=== PATIENT | female | born 1960 | race Caucasian/White ===

== ENCOUNTER 2020-04-15 14:25 | Outpatient (CLI) | payer MEDICAID, SELFPAY ==
--- NOTE | 2020-04-15 14:15 | USCV_ITS ---
Camille Warren Age: 59 Gender: F : 1960 Exam Date: 04/15/2020 14:41 Ordering Phys: Yassine Erazo MD Technologist: aWyne Barakat Exam Location: [facility] [place] Indication: LT LEG PAIN HISTORY: Lower extremity pain. PROCEDURES: The venous duplex Doppler examination of both lower extremities was performed in the standard fashion. The following venous structures were evaluated: common femoral vein, profunda vein, proximal portion of the greater saphenous vein, superficial femoral vein, and the popliteal vein. In addition, the posterior tibial and peroneal trunk were evaluated. Bilaterally, the common femoral, superficial femoral, profunda femoral, popliteal, posterior tibial, greater saphenous veins, and the peroneal trunk were identified and interrogated in the standard fashion. These veins were found to be easily compressible with spontaneous blood flow. No evidence of insufficiency or thrombus noted. FINDINGS: Normal 2-D Doppler and augmentation and compressibility throughout the lower extremity venous structures. Additional imaging through the proximal calf veins also reveals no thrombus. Limited evaluation of the greater saphenous vein is patent with no thrombus.. CONCLUSIONS No evidence of right lower extremity DVT. No evidence of left lower extremity DVT. Omari Horn MD (Electronically Signed) Final Date: 15 April 2020 16:55 S
== END 2020-04-15 14:26 | disposition home or self-care (01) ==
LOC: RAD 14:28
PROVIDERS: Visit Provider Family Medicine Adult Medicine
DX: M79.605 Pain in left leg (principal)
CPT/HCPCS: 93970

== ENCOUNTER 2020-06-01 13:04 | Outpatient (CLI) | payer MEDICAID, SELFPAY ==
--- NOTE | 2020-06-01 | XR_ITS ---
WS: [id number] KNEE RIGHT TECHNIQUE: 3 views of the right knee CLINICAL INFORMATION: DONE IN ERROR COMPARISON: None. FINDINGS: Mild degenerative narrowing medial and lateral joint compartments worse involving the medial joint co mpartment. Hypertrophic changes along the joint line. Hypertrophic patella. No acute fractures. XR/XR knee RT 3V* [id number] IMPRESSION: Mild tricompartmental arthritis. No acute fractures.
--- NOTE | 2020-06-01 13:00 | XR_ITS ---
WS: [id number] KNEE LEFT TECHNIQUE: 3 views of the left knee CLINICAL INFORMATION: chronic left knee pain COMPARISON: None. FINDINGS: Moderate degenerative arthritis medial joint compartment. Hypertrophic changes along the joint line. Hypertrophic patella. Moderate degenerative narrowing at the patellofemoral articulation. Mild soft t issue edema. Small suprapatellar effusion. XR/XR knee LT 3V* [id number] IMPRESSION: Moderate degenerative arthritis medial joint compartment and moderate degenerat ash narrowing at the patellofemoral articulation.
--- NOTE | 2020-06-01 13:30 | XR_ITS ---
WS: [id number] HIPS BILATERAL TECHNIQUE: 5 views bilateral hips Including pelvis CLINICAL INFORMATION: Chronic left hip, sciatica and knee pain COMPARISON: None. FINDINGS: Mild degenerative arthritis bilateral hips with mild joint space narrowing. Left iliac stent. No acut e fractures. Normal visualized pubic rami. IMPRESSION: Mild degenerative arthritis both hips.
== END 2020-06-01 13:05 | disposition home or self-care (01) ==
LOC: RADWPI 13:05
PROVIDERS: PCP Family Medicine Adult Medicine; Visit Provider Family Medicine Adult Medicine
DX: M25.552 Pain in left hip (principal); M25.551 Pain in right hip; M25.562 Pain in left knee; M16.0 Bilateral primary osteoarthritis of hip; M17.12 Unilateral primary osteoarthritis, left knee
CPT/HCPCS: 73521; 73562

== ENCOUNTER → 2020-10-04 13:43 | Outpatient (BNVA) | payer MEDICAID, SELFPAY | PROVIDERS: PCP Family Medicine Adult Medicine; Visit Provider Family Medicine Adult Medicine | DX: M51.16 Intervertebral disc disorders with radiculopathy, lumbar region (principal); M79.7 Fibromyalgia; I10 Essential (primary) hypertension; E66.01 Morbid (severe) obesity due to excess calories; Z68.41 Body mass index [BMI] 40.0-44.9, adult | CPT/HCPCS: 80053; 80061; 83036; 84443; 85025; 85651; 86140; 86431 ==

== ENCOUNTER 2020-10-11 07:45 | Emergency (ER) | payer MEDICAID, SELFPAY ==
[2020-10-11 07:54] VITALS: BP 123/77; PULSE 86; RESP 18; TEMP 36.9; O2SAT 97; BMI 37.8
--- NOTE | 2020-10-11 08:14 | USCV_ITS ---
Camille Warren Age: 59 Gender: F : 1960 Exam Date: 10/11/2020 08:48 Ordering Phys: Toro Johansen DO Technologist: Exam Location: [facility] – [place] Indication: BILAT EDEMA HX OF LT LEG DVT HISTORY: Lower extremity swelling. PROCEDURES: The venous duplex Doppler examination of both lower extremities was performed in the standard fashion. The following venous structures were evaluated: common femoral vein, profunda vein, proximal portion of the greater saphenous vein, superficial femoral vein, and the popliteal vein. In addition, the posterior tibial and peroneal trunk were evaluated. Bilaterally, the common femoral, superficial femoral, profunda femoral, popliteal, posterior tibial, greater saphenous veins, and the peroneal trunk were identified and interrogated in the standard fashion. These veins were found to be easily compressible with spontaneous blood flow. No evidence of insufficiency or thrombus noted. FINDINGS: Normal 2-D Doppler and augmentation and compressibility throughout the lower extremity venous structures. Additional imaging through the proximal calf veins also reveals no thrombus. Limited evaluation of the greater saphenous vein is patent with no thrombus.. CONCLUSIONS No evidence of right lower extremity DVT. No evidence of left lower extremity DVT. Omari Horn MD (Electronically Signed) Final Date: 11 Oct 2020 15:47 S
--- NOTE | 2020-10-11 08:14 | XRR_ITS ---
PROCEDURE INFORMATION: Exam: XR Chest Exam date and time: 10/11/2020 8:33 AM Age: 59 years old Clinical indication: Dyspnea; Type not specified; Patient HX: Chest pain, n/v TECHNIQUE: Imaging protocol: XR of the chest. Views: 1 view. COMPARISON: No relevant prior studies available. FINDINGS: Lungs: Small benign calcified granulomas are present in the right lung. Otherwise the lungs are clear with no pneumonia. Pleural spaces: Unremarkable. No pleural effusion. No pneumothorax. Heart/Mediastinum: Unremarkable. No cardiomegaly. Bones/joints: Unremarkable. XR/XR chest 1V portable [id number] IMPRESSION: No acute cardiopulmonary abnormality.
--- NOTE | 2020-10-11 08:15 | ECG_ITS ---
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 Measurements Intervals [place] Rate: 85 P: 49 DC: 169 QRS: -85 QRSD: 98 T: 70 QT: 419 QTc: 499 Interpretive Statements SINUS RHYTHM WITH OCCASIONAL SUPRAVENTRICULAR PREMATURE COMPLEXES LEFT AXIS DEVIATION [QRS AXIS < -30] PATTERN CONSISTENT WITH PULMONARY DISEASE INCOMPLETE RIGHT BUNDLE BRANCH BLOCK [90+ ms QRS DURATION, TERMINAL R IN V1/V2, 40+ ms S IN I/aVL/V4/V5/V6] No previous ECG available for comparison Electronically Signed On 10-12-2020 8:01:18 CDT by Quinn Pascual M.D. [email or web address] Solutionsgulf coast veterans health care systemAcademic Management Serviceskettering health.[employer]/store/NU/[id number] f
[2020-10-11 08:32] LABS: Basophils # 0.1 10^3/uL (0.0-0.1); Basophils % 0.4 %; Eosinophils # 0.2 10^3/uL (0.0-0.8); Eosinophils % 1.6 %; Hematocrit 43.9 % (37.0-47.0); Hemoglobin 14.6 g/dL (11.5-15.3); Lymphocytes # 0.8 10^3/uL (0.8-4.8); Lymphocytes % 6.6 %; Mean Corpuscular HGB Conc 33.3 g/dL (30.0-36.0); Mean Corpuscular Volume 96.3 fL (81-99); Mean Platelet Volume 10.2 fL (7.4-10.4); Monocytes # 0.8 10^3/uL (0.2-0.9); Monocytes % 7.1 %; Neutrophils # 9.87 10^3/uL (1.8-7.7); Neutrophils % 83.9 %; Nucleated Red Blood Cells % 0 %; Platelet Count 307 10^3/cmm (130-400); Red Blood Count 4.56 10^6/uL (4.1-5.3); Red Cell Distribution Width 13.1 % (12.1-15.1); White Blood Count 11.8 10^3/uL (4.0-10.0)
[2020-10-11 08:43] LABS: INR 0.93 (0.8-1.2)
[2020-10-11 08:44] LABS: Partial Thromboplastin Time 19.6 SECONDS (23.9-36.7)
[2020-10-11 08:52] LABS: Alanine Aminotransferase 14 U/L (0-33); Albumin Level 4.4 g/dL (3.5-5.2); Alkaline Phosphatase 117 IU/L (35-105); Anion Gap 13.8 (5-19); Aspartate Amino Transferase 13 U/L (0-32); Blood Urea Nitrogen 12 mg/dL (8-23); Calcium 8.8 mg/dL (8.5-10.5); Carbon Dioxide 28 mmol/L (22-29); Chloride 99 mmol/L (98-107); Creatine Phosphokinase 78 U/L (26-192); Globulin 2.2 g/dL (1.3-4.6); Glomerular Filtration Rate 72.9 mL/min (90-130); Glucose 127 mg/dL (65-115); Osmolality Calculated 285 mOsm/kg (285-295); Potassium 3.8 mmol/L (3.5-5.1); Sodium 137 mmol/L (136-145); Total Bilirubin 0.7 mg/dL (0.15-1.2); Total Protein 6.6 g/dL (6.6-8.7); Troponin(5th) Baseline 10 ng/L (0-10)
[2020-10-11 08:53] LABS: Slide Review Slide Review Perform
--- NOTE | 2020-10-11 08:55 | PC.PHAR ---
pt states she takes care of her own medications-pt states she was on a blood thinner about 4 months ago for a short time-ext med history shows eliquis starter pack 5mg filled on 04/14/2020 30d/s
--- NOTE | 2020-10-11 09:32 | ED_ITS ---
HPI - Chest Pain General: Chief Complaint: Chest Pain Stated Complaint: CHEST PAIN, NAUSEA Time Seen by Provider: 10/11/20 07:45 History of Present Illness: HPI narrative: 59 yo female comes in complaining of chest pain and nausea. Patient has a history of previous DVT she tells me she had stents placed PT but I cannot find any records about that it when talking to her does not sound like she is ever had any intermittent claudication or any peripheral artery disease although she has a smoker. She has no known history of coronary artery disease she was on Eliquis for a time but is not currently taking it. She does state she has some more swelling in her legs recently. She not previously had any stress testing. She has been afebrile she has not had a productive cough. MD complaint: chest pain Onset (ago): day(s) Timing of current episode: episodic and still present Onset: during rest Pain location: substernal Pain radiation: none Severity: mild Relieving factors: nothing Exacerbating factors: nothing Associated symptoms: Reports dyspnea; Deny abdominal pain, diaphoresis, fever(s), leg edema, nausea, palpitations, sense of impending doom, syncope or vomiting Treatment prior to arrival: none Review of Systems Const: Denies: fever(s) or diaphoresis ENMT: Denies: throat pain, ear or mastoid pain, nasal discharge or nasal congestion Card: Denies: palpitations or syncope Resp: Reports: dyspnea GI: Denies: abdominal pain, nausea or vomiting : Denies: flank pain, difficulty voiding, dysuria, urinary frequency or urinary urgency Skin/Breast: Denies: rash or pruritus PFSH ED PFSH: Medical History Bilateral leg edema Brain tumor Chronic GERD Chronic osteoarthritis COPD (chronic obstructive pulmonary disease) Hx of deep venous thrombosis Hypertension Morbid obesity with BMI of 40.0-44.9, adult Osteoarthritis of left knee Sciatica of left side Social History Smoking and tobacco status: current every day smoker cigarettes Packs smoked per day: 0.5 Alcohol intake: current Alcohol intake frequency: holidays/special occasions only Marital status: Single Number of children: 3 Current occupational status: disabled Physical Exam Const: COMMON NORMALS: no acute distress GENERAL APPEARANCE: cooperative and comfortable ORIENTATION/CONSCIOUSNESS: Yes awake, Yes oriented to person, Yes oriented to place and Yes oriented to time HENMT: COMMON NORMALS: normocephalic, atraumatic and hearing grossly normal bilaterally HEAD & SCALP: normocephalic and atraumatic Neck/C-Spine: COMMON NORMALS: no JVD Resp: COMMON NORMALS: normal respiratory effort, No retractions, No use of accessory muscles and clear to auscultation bilaterally AUSCULTATION: clear to auscultation bilaterally Cardio: COMMON NORMALS: no JVD, regular rate, regular rhythm and No murmurs present (Cardio) RATE: regular rate RHYTHM: regular rhythm GI: COMMON NORMALS: Soft to palpation and No hepatosplenomegaly present AUSCULTATION: Yes normoactive bowel sounds PALPATION: Yes Soft to palpation, No Tenderness to palpation present (GI), No Guarding due to palpation present (GI) and Yes No hepatosplenomegaly present Extremity: COMMON NORMALS: normal to inspection, capillary refill normal, no clubbing, cyanosis or edema, no calf tenderness and no pedal edema Neuro: SENSORIUM/ORIENTATION: Yes oriented to person, Yes oriented to place and Yes oriented to time Skin: COMMON NORMALS: no rashes or lesions noted GENERAL SKIN EXAM: no rashes or lesions noted Course Vital Signs: Vital signs: Vital Signs Temperature 98.5 F 10/11/20 07:54 Pulse Rate 87 10/11/20 10:29 Respiratory Rate 18 10/11/20 10:29 Blood Pressure 111/71 10/11/20 10:29 Pulse Oximetry 98 10/11/20 10:29 MDM - Chest Pain MDM Narrative: Medical decision making narrative: Patient has a heart score of 1. Her troponin is negative. We are going to discharge her home we will add isosorbide mononitrate also have her continue taking aspirin set up for an outpatient sestamibi stress test as any worsening or changes return. Lab Data: Labs: Lab Results 10/11/20 10/11/20 10/11/20 Range/Units 08:22 08:22 08:22 WBC 11.8 H (4.0-10.0) 10^3/ uL RBC 4.56 (4.1-5.3) 10^6/u L Hgb 14.6 (11.5-15.3) g/dL Hct 43.9 (37.0-47.0) % MCV 96.3 (81-99) fL MCH 32.0 (28.0-34.0) pg MCHC 33.3 (30.0-36.0) g/dL RDW 13.1 (12.1-15.1) % Plt Count 307 (130-400) 10^3/c mm MPV 10.2 (7.4-10.4) fL Neut % (Auto) 83.9 % Lymph % (Auto) 6.6 % [place] % (Auto) 7.1 % Eos % (Auto) 1.6 % Baso % (Auto) 0.4 % Neut # (Auto) 9.87 H (1.8-7.7) 10^3/u L Lymph # (Auto) 0.8 (0.8-4.8) 10^3/u L [place] # (Auto) 0.8 (0.2-0.9) 10^3/u L Eos # (Auto) 0.2 (0.0-0.8) 10^3/u L Baso # (Auto) 0.1 (0.0-0.1) 10^3/u L Nucleated RBC % (a uto) 0 % Nucleated RBCs # 0.0 /100WBC PT 12.80 (12.1-14.9) SECO NDS INR 0.93 (0.8-1.2) APTT 19.6 L (23.9-36.7) SECO NDS Sodium 137 (136-145) mmol/L Potassium 3.8 (3.5-5.1) mmol/L Chloride 99 (98-107) mmol/L Carbon Dioxide 28 (22-29) mmol/L Anion Gap 13.8 (5-19) BUN 12 (8-23) mg/dL Creatinine 0.8 (0.5-0.9) mg/dL GFR Calculation 72.9 L (90-130) mL/min Glucose 127 H (65-115) mg/dL Calculated Osmolal ity 285 (285-295) mOsm/k g Calcium 8.8 (8.5-10.5) mg/dL Total Bilirubin 0.7 (0.15-1.2) mg/dL AST 13 (0-32) U/L ALT 14 (0-33) U/L Alkaline Phosphata se 117 H (35-105) IU/L Creatine Kinase 78 (26-192) U/L Troponin T Baselin e (0-10) ng/L Troponin T 120 Min [place] (0-10) ng/L Delta Troponin T (0-10) ABS# Total Protein 6.6 (6.6-8.7) g/dL Albumin 4.4 (3.5-5.2) g/dL Globulin 2.2 (1.3-4.6) g/dL Urine Color (Yellow) Urine Appearance (CLEAR) Urine pH (5-7) Ur Specific Gravit y (1.005-1.030) Urine Protein (Negative) Urine Glucose (UA) (Normal) Urine Ketones (Negative) Urine Blood (Negative) Urine Nitrate (Negative) Urine Bilirubin (Negative) Urine Urobilinogen (Negative) mg/dL Ur Leukocyte Lina ase (Negative) Urine RBC (0-2) /hpf Urine WBC (0-5) /hpf Ur Squamous Epith Cells (0-5) /hpf Amorphous Sediment Urine Bacteria (NONE) /hpf Urine Mucus /hpf 10/11/20 10/11/20 10/11/20 Range/Units 08:22 09:24 10:32 WBC (4.0-10.0) 10^3/ uL RBC (4.1-5.3) 10^6/u L Hgb (11.5-15.3) g/dL Hct (37.0-47.0) % MCV (81-99) fL MCH (28.0-34.0) pg MCHC (30.0-36.0) g/dL RDW (12.1-15.1) % Plt Count (130-400) 10^3/c mm MPV (7.4-10.4) fL Neut % (Auto) % Lymph % (Auto) % [place] % (Auto) % Eos % (Auto) % Baso % (Auto) % Neut # (Auto) (1.8-7.7) 10^3/u L Lymph # (Auto) (0.8-4.8) 10^3/u L [place] # (Auto) (0.2-0.9) 10^3/u L Eos # (Auto) (0.0-0.8) 10^3/u L Baso # (Auto) (0.0-0.1) 10^3/u L Nucleated RBC % (a uto) % Nucleated RBCs # /100WBC PT (12.1-14.9) SECO NDS INR (0.8-1.2) APTT (23.9-36.7) SECO NDS Sodium (136-145) mmol/L Potassium (3.5-5.1) mmol/L Chloride (98-107) mmol/L Carbon Dioxide (22-29) mmol/L Anion Gap (5-19) BUN (8-23) mg/dL Creatinine (0.5-0.9) mg/dL GFR Calculation (90-130) mL/min Glucose (65-115) mg/dL Calculated Osmolal ity (285-295) mOsm/k g Calcium (8.5-10.5) mg/dL Total Bilirubin (0.15-1.2) mg/dL AST (0-32) U/L ALT (0-33) U/L Alkaline Phosphata se (35-105) IU/L Creatine Kinase (26-192) U/L Troponin T Baselin e 10 (0-10) ng/L Troponin T 120 Min [place] 6.51 (0-10) ng/L Delta Troponin T -3.49 L (0-10) ABS# Total Protein (6.6-8.7) g/dL Albumin (3.5-5.2) g/dL Globulin (1.3-4.6) g/dL Urine Color Yellow (Yellow) Urine Appearance Clear (CLEAR) Urine pH 5 (5-7) Ur Specific Gravit y 1.030 (1.005-1.030) Urine Protein Trace (Negative) Urine Glucose (UA) Norm (Normal) Urine Ketones Negative (Negative) Urine Blood 2+ H (Negative) Urine Nitrate Negative (Negative) Urine Bilirubin 1+ H (Negative) Urine Urobilinogen 1 H (Negative) mg/dL Ur Leukocyte Lina ase Trace H (Negative) Urine RBC 10-15 H (0-2) /hpf Urine WBC 5-10 H (0-5) /hpf Ur Squamous Epith Cells 0-4 H (0-5) /hpf Amorphous Sediment Not Reportable Urine Bacteria 1+ H (NONE) /hpf Urine Mucus 2+ /hpf Discharge Plan Discharge Patient Disposition: Home Clinical Impression: Atypical chest pain, COPD (chronic obstructive pulmonary disease), Hx of deep venous thrombosis Condition: Stable Prescriptions: New aspirin 81 mg tablet,delayed release (DR/EC) 81 mg PO DAILY Qty: 30 RF: 0 isosorbide mononitrate 30 mg tablet extended release 24 hr 30 mg PO DAILY Qty: 30 RF: 0 No Action albuterol sulfate 90 mcg/actuation HFA aerosol inhaler 2 puff inhalation Q6H PRN (Reason: shortness of breath or wheezing) Qty: 8.5 RF: 3 furosemide [Lasix] 40 mg tablet 40 mg PO BID Qty: 60 RF: 5 meloxicam 7.5 mg tablet 7.5 mg PO BIDWMEAL Qty: 60 RF: 3 Tylenol Extra Strength 500 mg Tablet 1,000 mg PO PRN RF: 0 omeprazole 40 mg capsule,delayed release(DR/EC) 40 mg PO QAM RF: 0 aspirin [Adult Aspirin Regimen] 81 mg tablet,delayed release (DR/EC) 81 mg PO QAM RF: 0 potassium chloride 20 mEq tablet extended release 20 meq PO QAM RF: 0 Discharge Orders: Discharge ED (Routine); Ordered 10/11/20 Ordered By: Toro Johansen Referrals: Yassine Erazo MD [Primary Care Provider] - Discharge Diet: Usual diet Discharge Activity: Limit activity as instructed Patient Instructions: Opioid Safety Activity Restrictions/Additional Instructions: Management will call to make arrangements for a stress test. If you have further problems. Coding Level of Care Code ED School Bus Driver/Custodian for Markg Fwd Exam Comprehensive
[2020-10-11 09:42] LABS: Add Urine Microscopic? YES; Bilirubin Urine 1+ (Negative); Blood Urine 2+ (Negative); Glucose Urine UA Norm (Normal); Ketones Urine Negative (Negative); Leukocyte Esterase Urine Trace (Negative); Nitrate Urine Negative (Negative); Protein Urine Trace (Negative); Urine Appearance Clear (CLEAR); Urine Color Yellow (Yellow); Urobilinogen Urine 1 mg/dL (Negative); pH Urine 5 (5-7)
[2020-10-11 09:50] LABS: Add Urine Culture? No; Bacteria Urine 1+ /hpf; Mucus Urine 2+ /hpf; Squamous Epithelial Cell Urine 0-4 /hpf (0-5)
--- NOTE | 2020-10-11 10:05 | CT_ITS ---
WS: [id number] CTA OF THE CHEST WITH PULMONARY EMBOLISM PROTOCOL TECHNIQUE: High-resolution contrast enhanced CTA of the chest with coronal and sagittal reformatted i mages with pulmonary embolism protocol. MIP images are also reviewed. CLINICAL INFORMATION: dyspnea COMPARISON: None. DLP: 582.[address] scans at [facility] use at least one of these dose optimization techniques: automat ed exposure control; mA and/or kV adjustment per patient size (includes targeted exams where dose is matched to clinical indication); or iterative reconstruction. FINDINGS: Proximal main pulmonary arteries are normal. Normal segmental and subsegmental pulmonary arteries. No evidence of pulmonary embolus. Normal caliber thoracic aorta. No mediastinal or hilar lymphadenopathy. No axillary lymphadenopathy. Both lungs are well aerated. No acute pulmonary infiltrates. Slight atelectasis in lung bases. Adrena l glands are normal. Normal GE junction. CT/CT angio chest PE protcl [id number] IMPRESSION: 1. Proximal main pulmonary arteries are normal. No evidence of pulmonary embol us. 2. Mild chronic emphysematous changes. No acute pulmonary infiltrates. 3. Slight subsegmental atelectasis the lung bases. 4. No mediastinal or hilar lymphadenopathy.
--- NOTE | 2020-10-11 10:15 | ECG_ITS ---
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 Measurements Intervals [place] Rate: 82 P: 59 ID: [id number] QRS: -83 QRSD: 94 T: 88 QT: 421 QTc: 495 Interpretive Statements SINUS RHYTHM INCOMPLETE RIGHT BUNDLE BRANCH BLOCK [90+ ms QRS DURATION, TERMINAL R IN V1/V2, 40+ ms S IN I/aVL/V4/V5/V6] LEFT ANTERIOR FASCICULAR BLOCK [QRS AXIS <= -45, QR IN I, RS IN II] Compared to ECG 10/11/2020 08:10:25 Left anterior fascicular block now present Left-axis deviation no longer present Electronically Signed On 10-12-2020 10:03:16 CDT by Quinn Pascual M.D. [id number] f
[2020-10-11] MEDS: iohexol 350 mg/mL 100 mL Btl IV (10:21)
[2020-10-11 10:29] VITALS: BP 111/71; PULSE 87; RESP 18; O2SAT 98
[2020-10-11 10:54] LABS: Troponin 5 2HR 6.51 ng/L (0-10)
[2020-10-11 10:55] LABS: Troponin 5 2HR Delta -3.49 ABS# (0-10)
[2020-10-11 11:58] VITALS: BP 144/81; PULSE 84; RESP 18; O2SAT 96
--- NOTE | 2020-10-11 15:46 | DCPLANNER ---
process improvement manager had message to schedule an outpatient stress test for patient. process improvement manager faxed signed order to centralized scheduling. process improvement manager will call for appointment information.
--- NOTE | 2020-10-19 08:54 | DCPLANNER ---
Patient has an outpatient stress test scheduled for Sunday, October 25, 2020 at 1:00. Centralized scheduling will call patient with appointment information.
--- NOTE | 2020-12-28 07:43 | DCPLANNER ---
Patient had an out patient stress test scheduled for 10.25.20 - it was rescheduled for a later date.
== END 2020-10-11 12:00 | disposition home or self-care (01) ==
PROVIDERS: Emergency Provider Family Medicine; PCP Family Medicine Adult Medicine
DX: R07.89 Other chest pain (principal); J44.9 Chronic obstructive pulmonary disease, unspecified; Z86.718 Personal history of other venous thrombosis and embolism; Z79.82 Long term (current) use of aspirin; I10 Essential (primary) hypertension; F17.210 Nicotine dependence, cigarettes, uncomplicated
CPT/HCPCS: 36415; 71045; 71275; 80053; 81001; 82550; 84484; 85025; 85610; 85730; 93005; 93970; 99284; Q9967

== ENCOUNTER 2021-06-01 15:05 | Inpatient (IN) | payer MEDICAID, SELFPAY ==
[2021-06-01] VITALS (20 sets, daily range): BP systolic 74–121; BP diastolic 53–102; PULSE 78–150; RESP 12–28; TEMP 36.7–37.5; O2SAT 92–100
--- NOTE | 2021-06-01 15:50 | XRR_ITS ---
PROCEDURE INFORMATION: Exam: XR Chest Exam date and time: 06/01/2021 3:50 PM Age: 60 years old Clinical indication: Cough and dyspnea; Additional info: Dyspnea/cough TECHNIQUE: Imaging protocol: XR of the chest. Views: 1 view. COMPARISON: CR XR chest 1V portable [id number] 10/11/2020 8:23 AM FINDINGS: Lungs: Calcified granulomas again noted in the right lung. No consolidation. Pleural spaces: Unremarkable. No pleural effusion. No pneumothorax. Heart/Mediastinum: Unremarkable. No cardiomegaly. Bones/joints: Unremarkable. XR/XR chest 1V portable [id number] IMPRESSION: No acute findings.
--- NOTE | 2021-06-01 16:05 | ECG_ITS ---
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 Measurements Intervals [place] Rate: 152 P: FL: QRS: -59 QRSD: 102 T: 69 QT: 293 QTc: 466 Interpretive Statements ATRIAL FLUTTER/TACHYCARDIA WITH RAPID VENTRICULAR RESPONSE LEFT AXIS DEVIATION [QRS AXIS < -30] INCOMPLETE RIGHT BUNDLE BRANCH BLOCK [90+ ms QRS DURATION, TERMINAL R IN V1/V2, 40+ ms S IN I/aVL/V4/V5/V6] MODERATE ST DEPRESSION [0.05+ mV ST DEPRESSION] CRITICAL TEST RESULT Compared to ECG 10/11/2020 11:04:48 Left-axis deviation now present ST (T wave) deviation now present Sinus rhythm no longer present Left anterior fascicular block no longer present Electronically Signed On 06-01-2021 20:36:39 HEAD WAITER/WAITRESS by Quinn Pascual M.D. [id number]
--- NOTE | 2021-06-01 16:06 | ED_ITS ---
Documented by User: Toro Johansen DO 06/08/21 10:20 HPI - COVID General: Chief Complaint: COVID symptoms Stated Complaint: Covid symptoms Time Seen by Provider: 06/01/21 15:49 Triage information: Has fever, cough or shortness of breath . No known COVID + exposure last 14 days History of Present Illness: HPI Narrative: 58-year-old female presents clinic cough shortness of breath nausea vomiting for last 4 days. She has not had any fever she has had generalized myalgias flulike symptoms. Cough is been nonproductive. Not previously vaccinated for Covid. She did had some initial diarrhea but that is resolved. MD complaint: has COVID symptoms Prior covid testing: no COVID 19 common symptoms: positive fever(s), chills, cough, non-productive cough, dyspnea, fatigue, body aches, loss of sense of smell and/or taste, nasal congestion, nausea and diarrhea; negative vomiting or chest tightness COVID 19 other sytmptoms: positive requiring oxygen; negative chest pain Onset (ago): week(s) Severity: mild Pertinent comorbid conditions: obesity COVID Results: No Data to Display Review of Systems Const: Reports: fever(s), chills, body aches and fatigue ENMT: Reports: nasal congestion Card: Denies: chest pain, edema, dyspnea on exertion or orthopnea Resp: Reports: dyspnea and non-productive cough GI: Reports: nausea and diarrhea; Denies: vomiting : Denies: flank pain, difficulty voiding, dysuria, urinary frequency or urinary urgency Skin/Breast: Denies: rash or pruritus PFSH ED PFSH: Medical History Anxiety and depression Bilateral leg edema Brain tumor Chronic GERD Chronic osteoarthritis COPD (chronic obstructive pulmonary disease) Hx of deep venous thrombosis Hypertension Morbid obesity with BMI of 40.0-44.9, adult Osteoarthritis of left knee Sciatica of left side Social History Alcohol intake: current Alcohol intake frequency: holidays/special occasions only Marital status: Single Number of children: 3 Current occupational status: disabled Physical Exam Const: GENERAL APPEARANCE: cooperative and comfortable ORIENTATION/CONSCIOUSNESS: Yes awake, Yes oriented to person, Yes oriented to place and Yes oriented to time HENMT: COMMON NORMALS: normocephalic, atraumatic, hearing grossly normal bilaterally and external ears normal HEAD & SCALP: normocephalic and atraumatic EXTERNAL EAR: Yes external ears normal Neck/C-Spine: COMMON NORMALS: no JVD Resp: AUSCULTATION: wheezes Cardio: COMMON NORMALS: no JVD, regular rate, regular rhythm and No murmurs present (Cardio) RATE: regular rate RHYTHM: regular rhythm GI: COMMON NORMALS: Soft to palpation and No hepatosplenomegaly present AUSCULTATION: Yes normoactive bowel sounds PALPATION: Yes Soft to palpation, No Tenderness to palpation present (GI), No Guarding due to palpation present (GI) and Yes No hepatosplenomegaly present Extremity: COMMON NORMALS: normal to inspection, capillary refill normal, no clubbing, cyanosis or edema, no calf tenderness and no pedal edema Neuro: SENSORIUM/ORIENTATION: Yes oriented to person, Yes oriented to place and Yes oriented to time Skin: COMMON NORMALS: no rashes or lesions noted GENERAL SKIN EXAM: no rash es or lesions noted Course Vital Signs: Vital signs: Vital Signs Temperature 98.6 F 06/04/21 12:00 Pulse Rate 72 06/04/21 12:00 Respiratory Rate 17 06/04/21 12:00 Blood Pressure 142/70 06/04/21 12:00 Pulse Oximetry 94 06/04/21 12:00 MDM - COVID MDM Narrative: Medical decision making narrative: Patient in with Emigdio quigley with [facility] also suspect she has Covid. Covid test is pending. Initially patient given IV Cardizem maxed out that dosage on the drip and she did not have any significant improvement. Subsequently switched her to esmolol and again she had no significant improvement. She continues to be in the 140s and sometimes above. Called and discussed with cardiology they do not recommend cardioversion at this time her blood pressure remains stable. Concerned that patient may require intubation if we sedate for cardioversion. Dr. Jaquez recommends discontinuing the esmolol drip at this point and stsrting amiodorone. Vital signs in the emergency room do not reflect it however the patient was hypoxic initially on presentation was below 90 and was on nasal cannula at 2 L. Due to arrhythmia and difficulty with rate control and her COVID status as well as other risk factors for worsening COVID she will require hospitalization. Lab Data: Labs: Lab Results 06/01/21 06/01/21 06/01/21 16:10 16:10 16:10 WBC 4.7 10^3/uL 10^3/ uL (4.0-10.0) RBC 4.52 10^6/uL 10^6 /uL (4.1-5.3) Hgb 14.4 g/dL g/dL (11.5-15.3) Hct 41.5 % % (37.0-47.0) MCV 91.8 fl fl (81-99) MCH 31.9 pg pg (28.0-34.0) MCHC 34.7 g/dL g/dL (30.0-36.0) RDW 13.5 % % (12.1-15.1) Plt Count 256 10^3/cmm 10^3 /cmm (130-400) MPV 10.4 fL fL (7.4-10.4) Neut % (Auto) 71.1 % % Lymph % (Auto) 17.2 % % [place] % (Auto) 10.9 % % Eos % (Auto) 0.2 % % Baso % (Auto) 0.2 % % Neut # (Auto) 3.34 10^3/uL 10^3 /uL (1.8-7.7) Lymph # (Auto) 0.8 10^3/uL 10^3/ uL (0.8-4.8) [place] # (Auto) 0.5 10^3/uL 10^3/ uL (0.2-0.9) Eos # (Auto) 0.0 10^3/uL 10^3/ uL (0.0-0.8) Baso # (Auto) 0.0 10^3/uL 10^3/ uL (0.0-0.1) Nucleated RBC % (a uto) 0 % % Nucleated RBCs # 0.0 /100WBC /100W BC D-Dimer Specimen Type Sample Site ABG pH ABG pCO2 ABG pO2 ABG HCO3 ABG O2 Saturation ABG Base Excess Anand Test A-a O2 Gradient Hematocrit Hgb O2 Saturation Carboxyhemoglobin Methemoglobin Total Hemoglobin Ionized Calcium O2 Delivery Device O2 Liters/Min FiO2 Car Head Liner Installer ID Sodium 131 mmol/L L mmol /L (136-145) Potassium 4.2 mmol/L mmol/L (3.5-5.1) Chloride 94 mmol/L L mmol/ L (98-107) Carbon Dioxide 22 mmol/L mmol/L (22-29) Anion Gap 19.2 H (5-19) BUN 9 mg/dL mg/dL (8-23) Creatinine 0.7 mg/dL mg/dL (0.5-0.9) GFR Calculation 84.8 mL/min L mL/ min (90-130) Glucose 101 mg/dL mg/dL (65-115) Calculated Osmolal ity 271 mOsm/kg L mOs m/kg (285-295) Calcium 8.2 mg/dL L mg/dL (8.5-10.5) Total Bilirubin 0.4 mg/dL mg/dL (0.15-1.2) AST 16 U/L U/L (0-32) ALT 12 U/L U/L (0-33) Alkaline Phosphata se 103 IU/L IU/L (35-105) Troponin T Baselin e 10 ng/L ng/L (0-10) Troponin T 120 Min [place] Troponin T C-Reactive Protein 105.9 mg/L H mg/L (0.0-4.9) Total Protein 6.1 g/dL L g/dL (6.6-8.7) Albumin 3.7 g/dL g/dL (3.5-5.2) Globulin 2.4 g/dL g/dL (1.3-4.6) Coronavirus 229E ( PCR) SARS-CoV-2 (PCR) 06/01/21 06/01/21 06/01/21 16:15 16:29 18:15 WBC RBC Hgb Hct MCV MCH MCHC RDW Plt Count MPV Neut % (Auto) Lymph % (Auto) [place] % (Auto) Eos % (Auto) Baso % (Auto) Neut # (Auto) Lymph # (Auto) [place] # (Auto) Eos # (Auto) Baso # (Auto) Nucleated RBC % (a uto) Nucleated RBCs # D-Dimer 1.38 ug/mIFEU H u g/mIFEU (0-0.59) Specimen Type Arterial Sample Site Radial, right ABG pH 7.48 H (7.35-7.45) ABG pCO2 31.7 mmHg L mmHg (35-45) ABG pO2 267.0 mmHg H mmHg (80.0-100.0) ABG HCO3 23.8 mmol/L mmol/ L (22-26) ABG O2 Saturation 99.9 ABG Base Excess 1.1 mmol/L mmol/L (-2.0-2.0) Anand Test Pos A-a O2 Gradient 51.4 mmHg H mmHg (5-10) Hematocrit 43.5 % % (37-47) Hgb O2 Saturation 98.9 % % (95-100) Carboxyhemoglobin 0.1 %THgb L %THgb (0.4-20.1) Methemoglobin 0.9 % % (0.4-1.5) Total Hemoglobin 14.2 g/dL g/dL (12-16) Ionized Calcium 1.1 mmol/L mmol/L (1.1-1.4) O2 Delivery Device Nrb O2 Liters/Min 15.0 % % FiO2 100.0 % % Car Head Liner Installer ID Rieri Sodium 132.0 mmol/L mmol /L (131-143) Potassium 4.1 mmol/L mmol/L (3.5-5.0) Chloride Carbon Dioxide Anion Gap BUN Creatinine GFR Calculation Glucose 105.0 mg/dL mg/dL (70-115) Calculated Osmolal ity Calcium Total Bilirubin AST ALT Alkaline Phosphata se Troponin T Baselin e Troponin T 120 Min [place] Troponin T C-Reactive Protein Total Protein Albumin Globulin Coronavirus 229E ( PCR) Not detected (NOT DETECT) SARS-CoV-2 (PCR) Detected A (NOT DETECT) 06/01/21 18:24 WBC RBC Hgb Hct MCV MCH MCHC RDW Plt Count MPV Neut % (Auto) Lymph % (Auto) [place] % (Auto) Eos % (Auto) Baso % (Auto) Neut # (Auto) Lymph # (Auto) [place] # (Auto) Eos # (Auto) Baso # (Auto) Nucleated RBC % (a uto) Nucleated RBCs # D-Dimer Specimen Type Sample Site ABG pH ABG pCO2 ABG pO2 ABG HCO3 ABG O2 Saturation ABG Base Excess Anand Test A-a O2 Gradient Hematocrit Hgb O2 Saturation Carboxyhemoglobin Methemoglobin Total Hemoglobin Ionized Calcium O2 Delivery Device O2 Liters/Min FiO2 Car Head Liner Installer ID Sodium Potassium Chloride Carbon Dioxide Anion Gap BUN Creatinine GFR Calculation Glucose Calculated Osmolal ity Calcium Total Bilirubin AST ALT Alkaline Phosphata se Troponin T Baselin e Troponin T 120 Min [place] 9.99 ng/L ng/L (0-10) [place] Troponin T -0.01 ABS# L ABS# (0-10) C-Reactive Protein Total Protein Albumin Globulin Coronavirus 229E ( PCR) SARS-CoV-2 (PCR) COVID Results: No Data to Display Critical Care Time Critical Care Time: Critical Care Time: Yes Total Critical Care Time: 40 Attestation: The high probability of a clinically significant, sudden or life threatening deterioration of the patient's [cardiovascular, respiratory] system(s) required my full and direct attention, intervention and personal management. The critical care time is as shown. This time is in addition to time spent performing any reported procedures but includes the following: [x] Data and vital sign review and interpretation [x] Patient assessment, examination and intervention [x] Documentation [x] Medication orders and management Discharge Plan Discharge Patient Disposition: Admitted As Inpatient Admit Provider: Cesar Pond Condition: Stable Discharge Diet: Regular Discharge Activity: Increase activity as tolerated Coding Level of Care Code ED Specification Writer for Chg Fwd Exam Comprehensive Documented by User: Scottie Mercer MD 06/01/21 20:08 HPI - COVID General: Chief Complaint: COVID symptoms Stated Complaint: Covid symptoms Time Seen by Provider: 06/01/21 15:49 COVID Results: No Data to Display PFSH ED PFSH: Medical History Anxiety and depression Bilateral leg edema Brain tumor Chronic GERD Chronic osteoarthritis COPD (chronic obstructive pulmonary disease) Hx of deep venous thrombosis Hypertension Morbid obesity with BMI of 40.0-44.9, adult Osteoarthritis of left knee Sciatica of left side Social History Alcohol intake: current Alcohol intake frequency: holidays/special occasions only Marital status: Single Number of children: 3 Current occupational status: disabled Procedures Procedural Sedation Indication: other (cardioversion) ASA Class: III Time of Last PO Intake: 15:07 Preparation: environmental monitoring specialist applied, pulse oximeter, supplemental O2 applied, suction/airway equipment at bedside and IV secured Ketamine dose (mg): 240 Patient Tolerated Procedure: well Complications: none Course Vital Signs: Vital signs: Vital Signs Temperature 98.6 F 06/04/21 12:00 Pulse Rate 72 06/04/21 12:00 Respiratory Rate 17 06/04/21 12:00 Blood Pressure 142/70 06/04/21 12:00 Pulse Oximetry 94 06/04/21 12:00 MDM - COVID MDM Narrative: Medical decision making narrative: Admitting physician came down seen patient she is been having hypotension with her atrial flutter core machine tender is seen patient as well they decided to cardiovert her. I help with procedural sedation for the cardioversion. I used ketamine as I felt that it would cause the least respiratory depression and be the best agent to try to avoid intubation with her Covid. Patient was induced with 240 mg IV patient was cardioverted it was successful patient blood pressure is improved now to 122/84 she is not hypoxic responsive we will still admit to the ICU at this time. Lab Data: Labs: Lab Results 06/01/21 06/01/21 06/01/21 16:10 16:10 16:10 WBC 4.7 10^3/uL 10^3/ uL (4.0-10.0) RBC 4.52 10^6/uL 10^6 /uL (4.1-5.3) Hgb 14.4 g/dL g/dL (11.5-15.3) Hct 41.5 % % (37.0-47.0) MCV 91.8 fl fl (81-99) MCH 31.9 pg pg (28.0-34.0) MCHC 34.7 g/dL g/dL (30.0-36.0) RDW 13.5 % % (12.1-15.1) Plt Count 256 10^3/cmm 10^3 /cmm (130-400) MPV 10.4 fL fL (7.4-10.4) Neut % (Auto) 71.1 % % Lymph % (Auto) 17.2 % % [place] % (Auto) 10.9 % % Eos % (Auto) 0.2 % % Baso % (Auto) 0.2 % % Neut # (Auto) 3.34 10^3/uL 10^3 /uL (1.8-7.7) Lymph # (Auto) 0.8 10^3/uL 10^3/ uL (0.8-4.8) [place] # (Auto) 0.5 10^3/uL 10^3/ uL (0.2-0.9) Eos # (Auto) 0.0 10^3/uL 10^3/ uL (0.0-0.8) Baso # (Auto) 0.0 10^3/uL 10^3/ uL (0.0-0.1) Nucleated RBC % (a uto) 0 % % Nucleated RBCs # 0.0 /100WBC /100W BC D-Dimer Specimen Type Sample Site ABG pH ABG pCO2 ABG pO2 ABG HCO3 ABG O2 Saturation ABG Base Excess Anand Test A-a O2 Gradient Hematocrit Hgb O2 Saturation Carboxyhemoglobin Methemoglobin Total Hemoglobin Ionized Calcium O2 Delivery Device O2 Liters/Min FiO2 Car Head Liner Installer ID Sodium 131 mmol/L L mmol /L (136-145) Potassium 4.2 mmol/L mmol/L (3.5-5.1) Chloride 94 mmol/L L mmol/ L (98-107) Carbon Dioxide 22 mmol/L mmol/L (22-29) Anion Gap 19.2 H (5-19) BUN 9 mg/dL mg/dL (8-23) Creatinine 0.7 mg/dL mg/dL (0.5-0.9) GFR Calculation 84.8 mL/min L mL/ min (90-130) Glucose 101 mg/dL mg/dL (65-115) Calculated Osmolal ity 271 mOsm/kg L mOs m/kg (285-295) Calcium 8.2 mg/dL L mg/dL (8.5-10.5) Total Bilirubin 0.4 mg/dL mg/dL (0.15-1.2) AST 16 U/L U/L (0-32) ALT 12 U/L U/L (0-33) Alkaline Phosphata se 103 IU/L IU/L (35-105) Troponin T Baselin e 10 ng/L ng/L (0-10) Troponin T 120 Min [place] Troponin T C-Reactive Protein 105.9 mg/L H mg/L (0.0-4.9) Total Protein 6.1 g/dL L g/dL (6.6-8.7) Albumin 3.7 g/dL g/dL (3.5-5.2) Globulin 2.4 g/dL g/dL (1.3-4.6) Coronavirus 229E ( PCR) SARS-CoV-2 (PCR) 06/01/21 06/01/21 06/01/21 16:15 16:29 18:15 WBC RBC Hgb Hct MCV MCH MCHC RDW Plt Count MPV Neut % (Auto) Lymph % (Auto) [place] % (Auto) Eos % (Auto) Baso % (Auto) Neut # (Auto) Lymph # (Auto) [place] # (Auto) Eos # (Auto) Baso # (Auto) Nucleated RBC % (a uto) Nucleated RBCs # D-Dimer 1.38 ug/mIFEU H u g/mIFEU (0-0.59) Specimen Type Arterial Sample Site Radial, right ABG pH 7.48 H (7.35-7.45) ABG pCO2 31.7 mmHg L mmHg (35-45) ABG pO2 267.0 mmHg H mmHg (80.0-100.0) ABG HCO3 23.8 mmol/L mmol/ L (22-26) ABG O2 Saturation 99.9 ABG Base Excess 1.1 mmol/L mmol/L (-2.0-2.0) Anand Test Pos A-a O2 Gradient 51.4 mmHg H mmHg (5-10) Hematocrit 43.5 % % (37-47) Hgb O2 Saturation 98.9 % % (95-100) Carboxyhemoglobin 0.1 %THgb L %THgb (0.4-20.1) Methemoglobin 0.9 % % (0.4-1.5) Total Hemoglobin 14.2 g/dL g/dL (12-16) Ionized Calcium 1.1 mmol/L mmol/L (1.1-1.4) O2 Delivery Device Nrb O2 Liters/Min 15.0 % % FiO2 100.0 % % Car Head Liner Installer ID Rieri Sodium 132.0 mmol/L mmol /L (131-143) Potassium 4.1 mmol/L mmol/L (3.5-5.0) Chloride Carbon Dioxide Anion Gap BUN Creatinine GFR Calculation Glucose 105.0 mg/dL mg/dL (70-115) Calculated Osmolal ity Calcium Total Bilirubin AST ALT Alkaline Phosphata se Troponin T Baselin e Troponin T 120 Min [place] Troponin T C-Reactive Protein Total Protein Albumin Globulin Coronavirus 229E ( PCR) Not detected (NOT DETECT) SARS-CoV-2 (PCR) Detected A (NOT DETECT) 06/01/21 18:24 WBC RBC Hgb Hct MCV MCH MCHC RDW Plt Count MPV Neut % (Auto) Lymph % (Auto) [place] % (Auto) Eos % (Auto) Baso % (Auto) Neut # (Auto) Lymph # (Auto) [place] # (Auto) Eos # (Auto) Baso # (Auto) Nucleated RBC % (a uto) Nucleated RBCs # D-Dimer Specimen Type Sample Site ABG pH ABG pCO2 ABG pO2 ABG HCO3 ABG O2 Saturation ABG Base Excess Anand Test A-a O2 Gradient Hematocrit Hgb O2 Saturation Carboxyhemoglobin Methemoglobin Total Hemoglobin Ionized Calcium O2 Delivery Device O2 Liters/Min FiO2 Car Head Liner Installer ID Sodium Potassium Chloride Carbon Dioxide Anion Gap BUN Creatinine GFR Calculation Glucose Calculated Osmolal ity Calcium Total Bilirubin AST ALT Alkaline Phosphata se Troponin T Baselin e Troponin T 120 Min [place] 9.99 ng/L ng/L (0-10) Delta Troponin T -0.01 ABS# L ABS# (0-10) C-Reactive Protein Total Protein Albumin Globulin Coronavirus 229E ( PCR) SARS-CoV-2 (PCR) COVID Results: No Data to Display Critical Care Time Critical Care Time: Critical Care Time: Yes Total Critical Care Time: 35 Attestation: The high probability of a clinically significant, sudden or life threatening deterioration of the patient's [] system(s) required my full and direct attention, intervention and personal management. The critical care time is as shown. This time is in addition to time spent performing any reported procedures but includes the following: [x] Data and vital sign review and interpretation [x] Patient assessment, examination and intervention [x] Documentation [x] Medication orders and management Discharge Plan Discharge Patient Disposition: Admitted As Inpatient Admit Provider: Cesar Pond Condition: Stable Discharge Diet: Regular Discharge Activity: Increase activity as tolerated Coding Level of Care Code ED Specification Writer for Chg Fwd Exam Comprehensive
[2021-06-01] MEDS: sodium chloride 0.9% 500 ML IV (16:13)
[2021-06-01 16:26] LABS: Basophils % 0.2 %; Eosinophils % 0.2 %; Hematocrit 41.5 % (37.0-47.0); Hemoglobin 14.4 g/dL (11.5-15.3); Lymphocytes # 0.8 10^3/uL (0.8-4.8); Lymphocytes % 17.2 %; Mean Corpuscular HGB Conc 34.7 g/dL (30.0-36.0); Mean Corpuscular Hemoglobin 31.9 pg (28.0-34.0); Mean Corpuscular Volume 91.8 fl (81-99); Mean Platelet Volume 10.4 fL (7.4-10.4); Monocytes # 0.5 10^3/uL (0.2-0.9); Monocytes % 10.9 %; Neutrophils # 3.34 10^3/uL (1.8-7.7); Neutrophils % 71.1 %; Nucleated Red Blood Cells % 0 %; Platelet Count 256 10^3/cmm (130-400); Red Blood Count 4.52 10^6/uL (4.1-5.3); Red Cell Distribution Width 13.5 % (12.1-15.1); White Blood Count 4.7 10^3/uL (4.0-10.0)
--- NOTE | 2021-06-01 16:43 | CTR_ITS ---
PROCEDURE INFORMATION: Exam: CTA Chest With Contrast Exam date and time: 06/01/2021 4:43 PM Age: 60 years old Clinical indication: Shortness of breath; Prior surgery; Patient HX: Hypoxia, tachycardia; Additional info: Tachycardia/hypoxia TECHNIQUE: Imaging protocol: Computed tomographic angiography of the chest with contrast. 3D rendering (Not supervised by radiologist): MIP and/or 3D reconstructed images were created by the technologist. Radiation optimization: All CT scans at this facility use at least one of these dose optimization techniques: automated exposure control; mA and/or kV adjustment per patient size (includes targeted exams where dose is matched to clinical indication); or iterative reconstruction. Contrast material: VISIPAQUE 320; Contrast volume: 78 ml; Contrast route: INTRAVENOUS (IV); COMPARISON: CT angio chest PE protcl [id number] 10/11/2020 10:30 AM RADIATION DOSE METRICS: Total DLP (mGy-cm): 578.25 FINDINGS: Pulmonary arteries: Normal. No pulmonary emboli. Aorta: Unremarkable. No aortic aneurysm. No aortic dissection. Lungs: Patchy peripheral ground-glass opacities scattered throughout both lungs. Multiple calcified granulomas in both lungs. 3 mm right upper lobe noncalcified nodule, series 2, image 222. Pleural spaces: Unremarkable. No pneumothorax. No pleural effusion. Heart: Trace pericardial effusion. The heart size is normal. Lymph nodes: Prominent mediastinal and hilar lymph nodes are most likely reactive. Calcified mediastinal and left hilar lymph nodes. Bones/joints: Unremarkable. No acute fracture. Soft tissues: Unremarkable. CT/CT angio chest PE protcl [id number] IMPRESSION: 1. No evidence for pulmonary embolus. 2. Multilobar ground-glass opacities, most likely viral pneumonia. This pattern can be seen with COVID-19 pneumonia as well as other infectious etiologies. 3. 3 mm right pulmonary nodule. For patients at low risk (minimal or absent history of smoking and of other known risk factors), no routine follow-up is indicated. For patients at high risk (history of smoking or of other known risk factors), consider optional CT Chest at 12 months. (Reference: Radhames) References: Radhames Harden, et al. Guidelines for Management of Incidental Pulmonary Nodules Detected on CT Images: From the Fleischner Society 2017. Radiology. 2017;284(1):228-243.
[2021-06-01 16:47] LABS: Alanine Aminotransferase 12 U/L (0-33); Albumin Level 3.7 g/dL (3.5-5.2); Alkaline Phosphatase 103 IU/L (35-105); Anion Gap 19.2 (5-19); Aspartate Amino Transferase 16 U/L (0-32); Blood Urea Nitrogen 9 mg/dL (8-23); C Reactive Protein 105.9 mg/L (0.0-4.9); Calcium 8.2 mg/dL (8.5-10.5); Carbon Dioxide 22 mmol/L (22-29); Chloride 94 mmol/L (98-107); Globulin 2.4 g/dL (1.3-4.6); Glomerular Filtration Rate 84.8 mL/min (90-130); Glucose 101 mg/dL (65-115); Osmolality Calculated 271 mOsm/kg (285-295); Potassium 4.2 mmol/L (3.5-5.1); Sodium 131 mmol/L (136-145); Total Bilirubin 0.4 mg/dL (0.15-1.2); Total Protein 6.1 g/dL (6.6-8.7)
[2021-06-01 16:49] LABS: D Dimer 1.38 ug/mIFEU (0-0.59)
[2021-06-01 16:54] LABS: Troponin(5th) Baseline 10 ng/L (0-10)
[2021-06-01] MEDS: esmolol drip 2,500 MG/250 ML PREMIX 33.9 MG IV (17:34)
--- NOTE | 2021-06-01 18:05 | ECG_ITS ---
[facility] Test Date: 2021-06-02 Pat Name: Camille Warren Department: Room: ICU03 Gender: Female Revenue Collector: : 1960 Requested By: Toro Hoyos Order Number: [id number] Ava MD: Jen Esparza M.D. Measurements Intervals [place] Rate: 71 P: 55 NV: 188 QRS: -59 QRSD: 102 T: 58 QT: 430 QTc: 468 Interpretive Statements SINUS RHYTHM INCOMPLETE RIGHT BUNDLE BRANCH BLOCK [90+ ms QRS DURATION, TERMINAL R IN V1/V2, 40+ ms S IN I/aVL/V4/V5/V6] LEFT ANTERIOR FASCICULAR BLOCK [QRS AXIS <= -45, QR IN I, RS IN II] NONSPECIFIC T-WAVE ABNORMALITY Compared to ECG 06/01/2021 15:58:44 Left anterior fascicular block now present T-wave abnormality now present Atrial flutter no longer present Left-axis deviation no longer present ST (T wave) deviation no longer present Electronically Signed On 06-03-2021 17:15:05 SPECIAL CERTIFICATE DICTATOR by Jen Esparza M.D. [email or web address]
[2021-06-01 18:21] LABS: ABG PCO2 31.7 mmHg (35-45); ABG PH Result 7.48 (7.35-7.45); Alveolar-Arterial Oxygen Gradi 51.4 mmHg (5-10); Arterial Blood Gas Hematocrit 43.5 % (37-47); Base Excess ABG 1.1 mmol/L (-2.0-2.0); Blood Gas Allen Test Pos; Blood Gas Sample Site Radial, right; Blood Gas Sample Type Arterial; Carboxyhemoglobin 0.1 %THgb (0.4-20.1); HCO3 ABG 23.8 mmol/L (22-26); HGB O2 Sat 98.9 % (95-100); Ionized Calcium Level - ABG 1.1 mmol/L (1.1-1.4); Methemoglobin 0.9 % (0.4-1.5); Oxygen Device NRB; Oxygen Saturation ABG 99.9; Potassium Level - ABG 4.1 mmol/L (3.5-5.0); Total Hemoglobin 14.2 g/dL (12-16)
[2021-06-01] MEDS: enoxaparin 120 mg/0.8 mL Syringe 110 MG SUBCUT (18:24)
[2021-06-01] MEDS: sodium chloride 0.9% 500 ML 999 ML IV ×2 (18:24→19:22)
[2021-06-01] MEDS: amiodarone 50 mg/mL SDV 3 mL 150 MG IVP (18:25)
[2021-06-01 18:36] LABS: Adenovirus Not Detected (NOT DETECT); Chlamydia Pneumoniae Not Detected (NOT DETECT); Coronavirus 229E,HKU1,NL63,OC4 Not Detected (NOT DETECT); Human Metapneumovirus Not Detected (NOT DETECT); Human Rhinovirus/Enterovirus Not Detected (NOT DETECT); Influenza A Not Detected (NOT DETECT); Influenza A H1 Not Detected (NOT DETECT); Influenza A H1-2009 Not Detected (NOT DETECT); Influenza A H3 Not Detected (NOT DETECT); Influenza B Not Detected (NOT DETECT); Mycoplasma Pneumoniae Not Detected (NOT DETECT); Parainfluenza Virus Type 1 Not Detected (NOT DETECT); Parainfluenza Virus Type 2 Not Detected (NOT DETECT); Parainfluenza Virus Type 3 Not Detected (NOT DETECT); Parainfluenza Virus Type 4 Not Detected (NOT DETECT); Respiratory Syncytial Virus A Not Detected (NOT DETECT); Respiratory Syncytial Virus B Not Detected (NOT DETECT); SARS-COV-2 Detected (NOT DETECT)
[2021-06-01 19:14] LABS: Troponin 5 2HR 9.99 ng/L (0-10)
--- NOTE | 2021-06-01 19:14 | PM.HP ---
Providers/Chief Complaint Primary Care Provider: Yassine Erazo MD Chief Complaint: Covid symptoms History of Present Illness Camille Warren is a 60 year old female with past medical history of hypertension, fibromyalgia, osteoarthritis, chronic back pain, morbid obesity, was brought in with chief complaint of fever chills, nonproductive cough, dysnea, fatigue , loss of sense of smell and/or taste, nasal congestion, nausea and diarrhea going on for the last couple of days. Upon arrival in the ER she was worked up for for above-mentioned complaint. Pertinent imaging studies: CTA chest: No P/E , Multilobar ground-glass opacities EKG: A flutter with RVR with heart rate in 140s to 150s Pertinent labs: WBC 4.7, H&H:14.4/41,PLT : 256 , serum sodium 131, Serum k: 4.2, BUN / serum creatinine: 9/0.7 , CRP:105, D-dimer:1.38 Rapid Covid pcr positive Troponin trend without significant delta ABG: pH 7.48, PCO2 31, po2:267, FiO2: 100% Patient was severely symptomatic with respect to her atrial flutter with RVR, she did not responded to Cardizem, esmolol drip was started, amiodarone bolus was given , Amio drip was hanged, IV fluid was given , she was severely symptomatic as well as hypotensive. Plan was developed to cardioverted her, and if needed intubate her in case of respiratory compromise. Patient was successfully cardioverted to normal sinus rhythm (ketamine was used, she was sync and shocked with 150 j ) She was saturating 100% on heated high flow oxygen through nasal cannula ( 40ls/min and 55% FiO2 ) Review of Systems Const: Denies: diaphoresis Card: Denies: edema, swelling of feet/ankles or leg pain with exertion Resp: Denies: wheezing or pain on inspiration GI: Denies: abdominal pain, nausea, vomiting, diarrhea or constipation : Denies: flank pain Musc: Denies: back pain, extremity pain or extremity swelling Neuro: Denies: headache(s), difficulty walking or confusion Medications/Allergies Home Medications Medication Instructions Recorded Confirmed Last Taken Type acetaminophen [Tylenol Extra 1,000 mg PO PRN 10/11/20 04/25/21 Unknown History Strength] albuterol sulfate 90 mcg/actuation 2 puff INHALATION Q6H PRN #8.5 g 02/15/21 04/25/21 Unknown Rx aerosol inhaler aspirin 81 mg tablet,delayed 81 mg PO DAILY #90 tab 02/15/21 04/25/21 Unknown Rx release furosemide 40 mg tablet 40 mg PO BID #60 tab 02/15/21 04/25/21 Unknown Rx isosorbide mononitrate 30 mg 30 mg PO DAILY #30 tab 02/15/21 04/25/21 Unknown Rx tablet,extended release 24 hr omeprazole 40 mg capsule,delayed 40 mg PO QAM #30 cap 02/15/21 04/25/21 Unknown Rx release potassium chloride 20 mEq 20 meq PO QAM #30 tab 02/15/21 04/25/21 Unknown Rx tablet,extended release amitriptyline 25 mg tablet 12.5 mg PO DAILY #30 tab 04/25/21 04/25/21 Unknown Rx bupropion HCl 150 mg tablet,12 hr 300 mg PO QAM 30 Days #60 tab 04/25/21 04/25/21 Unknown Rx sustained-release meloxicam 7.5 mg tablet 7.5 mg PO BIDWMEAL #60 tab 04/25/21 04/25/21 Unknown Rx Allergies Allergy/AdvReac Type Severity Reaction Status Date / Time No Known Allergies Allergy Verified 04/25/21 13:58 PFSH Acute PFSH: Medical History Anxiety and depression Bilateral leg edema Brain tumor Chronic GERD Chronic osteoarthritis COPD (chronic obstructive pulmonary disease) Hx of deep venous thrombosis Hypertension Morbid obesity with BMI of 40.0-44.9, adult Osteoarthritis of left knee Sciatica of left side Social History Alcohol intake: current Alcohol intake frequency: holidays/special occasions only Marital status: Single Number of children: 3 Current occupational status: disabled Vitals/I&O/Wt Last Vital Signs Temp 98.1 F 06/01/21 15:33 Pulse 136 H 06/01/21 18:58 Resp 20 H 06/01/21 18:58 BP 108/90 06/01/21 18:58 Pulse Ox 97 06/01/21 18:30 06/01/21 06/01/21 06/01/21 06:59 14:59 22:59 Intake Total 557.315 / 557.315 Balance 557.315 / 557.315 Physical Exam Const: COMMON NORMALS: patient oriented x3 HENMT: COMMON NORMALS: normocephalic and atraumatic HEAD & SCALP: normocephalic and atraumatic Resp: COMMON NORMALS: clear to auscultation bilaterally AUSCULTATION: clear to auscultation bilaterally Cardio: COMMON NORMALS: regular rate, regular rhythm, S1 normal heart sound present, S2 normal heart sound present, No gallops present (Cardio), No murmurs present (Cardio), No rub (Cardio) and Peripheral pulses 2+ throughout RATE: regular rate RHYTHM: regular rhythm HEART SOUNDS: S1 normal heart sound present and S2 normal heart sound present PERIPHERAL PULSES: Peripheral pulses 2+ throughout GI: COMMON NORMALS: Normal to inspection, nondistended, normoactive bowel sounds present, Soft to palpation, non-tender, No hepatosplenomegaly present and no masses AUSCULTATION: Yes normoactive bowel sounds PALPATION: Yes Soft to palpation and Yes No hepatosplenomegaly present RECTAL EXAM: deferred Extremity: COMMON NORMALS: no clubbing, cyanosis or edema and no pedal edema Neuro: COMMON NORMALS: patient oriented x3 Data : 06/01/21 16:10 06/01/21 16:10 A&P Assessment and plan (1) Atrial flutter with rapid ventricular response: Status: Acute (2) Pneumonia due to COVID-19 virus: Status: Acute (3) Anxiety and depression: Status: Acute (4) Chronic osteoarthritis: Status: Acute (5) Lumbar disc disease with radiculopathy: Status: Acute (6) Fibromyalgia: Status: Acute (7) Chronic GERD: Status: Acute (8) Morbid obesity with BMI of 40.0-44.9, adult: Status: Acute (9) COPD (chronic obstructive pulmonary disease): Status: Acute (10) Hypertension: Status: Acute (11) Hx of deep venous thrombosis: Status: Acute Additional A&P Information 60 year old female with past medical history of hypertension, fibromyalgia, osteoarthritis, chronic back pain, morbid obesity, was brought in with chief complaint of fever chills, nonproductive cough, dysnea, fatigue , loss of sense of smell and/or taste, nasal congestion, nausea and diarrhea going on for the last couple of days. #Symptomatic A.Flutter with RVR : S/P Sync Cardioversion : To NSR 2D ECHO TSH Continue Amiodarone Drip for now Lovenox 70 sc q 12 H daily Tele #COVID PNA : On COVID Protocol # HTN: # OA #Fibromyalgia #Code Status :Full Code #DVT PPX :On lovenox Attestations Medical Necessity Statement*: Patient is to be in hospital for management of a flutter with RVR, Covid pneumonia.Anticipated LOS Greater then 2 midnights. Time Spent in Patient Care: Greater than 35 minutes Critical Care Time: Critical Care Time (min): 70 Other Attestations: The high probability of a clinically significant, sudden or life threatening deterioration of the patient's [] system(s) required my full and direct attention, intervention and personal management. The critical care time is as shown. This time is in addition to time spent performing any reported procedures but includes the following: [x] Data and vital sign review and interpretation [x] Patient assessment, examination and intervention [x] Documentation [x] Medication orders and management Coding Level of Care Code Acute Rv Servicer for [facility] Fwd Exam Detailed Diagnoses Atrial flutter with rapid ventricular response I48.92 Pneumonia due to COVID-19 virus U07.1; J12.82 Anxiety and depression F41.9; F32.9 Chronic osteoarthritis M19.90 Lumbar disc disease with radiculopathy M51.16 Fibromyalgia M79.7 Chronic GERD K21.9 Morbid obesity with BMI of 40.0-44.9, adult E66.01; Z68.41 COPD (chronic obstructive pulmonary disease) J44.9 Hypertension I10 Hx of deep venous thrombosis Z86.718
[2021-06-01 19:15] LABS: Troponin 5 2HR Delta -0.01 ABS# (0-10)
--- NOTE | 2021-06-01 19:30 | P.CONIM_ITS ---
Providers/Reason For Consult Consulting Physician/Specialty*: Dr. Esparza, cardiology Reason for Consult*: Symptomatic atrial flutter with RVR Primary Care Provider: Yassine Erazo MD History of Present Illness History of Present Illness Camille Warren is a 60 year old female presented with complaints of not feeling well for the last few days. She complains of tiredness with oxygen saturation in 90s and heart racing in 130s. She noticed her heart racing about 2 days back. She presented to the ER for further evaluation and was diagnosed with COVID-19 pneumonia. She was also noted to be in atrial flutter with RVR with heart rate in 140s to 150s. She was given Cardizem bolus followed by Cardizem drip which caused her blood pressure to drop. The drip was transitioned to spasm heart rate but she continued to be in atrial flutter with RVR. I was asked to evaluate the patient for symptomatic atrial flutter with RVR with hypotension. Subsequently, she was started on amiodarone gtt. after amiodarone bolus. However she continued to be in atrial flutter with RVR with SOB, hypotension, generalized feeling of not doing well. Review of Systems Const: Reports: fever(s), chills, body aches and fatigue ENMT: Reports: nasal congestion Card: Denies: chest pain, edema, dyspnea on exertion or orthopnea Resp: Reports: dyspnea and non-productive cough GI: Reports: nausea and diarrhea; Denies: vomiting : Denies: flank pain, difficulty voiding, dysuria, urinary frequency or urinary urgency Musc: Reports: back pain; Denies: extremity swelling Skin/Breast: Denies: rash or pruritus Psych: Reports: anxiety Meds/Allergies Home Medications and Allergies Home Medications Medication Instructions Recorded Confirmed Last Taken Type acetaminophen [Tylenol Extra 1,000 mg PO PRN 10/11/20 04/25/21 Unknown History Strength] albuterol sulfate 90 mcg/actuation 2 puff INHALATION Q6H PRN #8.5 g 02/15/21 04/25/21 Unknown Rx aerosol inhaler aspirin 81 mg tablet,delayed 81 mg PO DAILY #90 tab 02/15/21 04/25/21 Unknown Rx release furosemide 40 mg tablet 40 mg PO BID #60 tab 02/15/21 04/25/21 Unknown Rx isosorbide mononitrate 30 mg 30 mg PO DAILY #30 tab 02/15/21 04/25/21 Unknown Rx tablet,extended release 24 hr omeprazole 40 mg capsule,delayed 40 mg PO QAM #30 cap 02/15/21 04/25/21 Unknown Rx release potassium chloride 20 mEq 20 meq PO QAM #30 tab 02/15/21 04/25/21 Unknown Rx tablet,extended release amitriptyline 25 mg tablet 12.5 mg PO DAILY #30 tab 04/25/21 04/25/21 Unknown Rx bupropion HCl 150 mg tablet,12 hr 300 mg PO QAM 30 Days #60 tab 04/25/21 04/25/21 Unknown Rx sustained-release meloxicam 7.5 mg tablet 7.5 mg PO BIDWMEAL #60 tab 04/25/21 04/25/21 Unknown Rx Allergies Allergy/AdvReac Type Severity Reaction Status Date / Time No Known Allergies Allergy Verified 04/25/21 13:58 Current Medications Current Medications Generic Name Dose Route Start Last Admin Trade Name Freq PRN Reason Stop Dose Admin Diltiazem HCl 125 mg/ Sodium 125 mls @ 0 mls/hr 06/01/21 16:15 06/01/21 18:18 Chloride IV 0 mg/hr .Q0M BABAK 0 mls/hr Titration Protocol Per Protocol Esmolol HCl 2,500 mg in 250 mls @ 0 mls/hr 06/01/21 17:00 06/01/21 19:28 Brevibloc Drip IV 0 mcg/kg/min .Q0M BABAK 0 mls/hr Titration Protocol Per Protocol Amiodarone HCl 900 mg/ 518 mls @ 0 mls/hr 06/01/21 18:30 06/01/21 18:35 Dextrose/ IV Miscellaneous IV 1 mg/min Supplies .Q0M BABAK 34.53 mls/hr Administration Protocol Per Protocol PFSH Acute PFSH: Medical History Anxiety and depression Bilateral leg edema Brain tumor Chronic GERD Chronic osteoarthritis COPD (chronic obstructive pulmonary disease) Hx of deep venous thrombosis Hypertension Morbid obesity with BMI of 40.0-44.9, adult Osteoarthritis of left knee Sciatica of left side Social History Alcohol intake: current Alcohol intake frequency: holidays/special occasions only Marital status: Single Number of children: 3 Current occupational status: disabled Vitals/I&O/Wt Last Vital Signs Temp 98.1 F 06/01/21 15:33 Pulse 136 H 06/01/21 18:58 Resp 20 H 06/01/21 18:58 BP 108/90 06/01/21 18:58 Pulse Ox 97 06/01/21 18:30 06/01/21 06/01/21 06/01/21 06:59 14:59 22:59 Intake Total 682.745 / 682.745 Balance 682.745 / 682.745 Physical Exam Narrative: EXAM NARRATIVE: GENERAL: obese woman in bed in mild respiratory distress HEENT: Pupils equal round reactive to light. No pallor or icterus. NECK: No JVD, No carotid bruit. CARDIOVASCULAR SYSTEM: S1-S2 regular. tachycardia+ . No murmur or gallops. RESPIRATORY SYSTEM: Chest clear to auscultation except at bases. No wheezes +rhonchi. No use of accessory muscles. ABDOMEN: Soft, nontender and nondistended. Normal bowel sounds present. EXTREMITIES: No cyanosis or edema. No signs of chronic venous insufficiency. MEDICAL AFFAIRS LEADER: Patient is alert oriented ?3. No focal neurological deficits. A&P Assessment and plan (1) Atrial flutter with rapid ventricular response: Patient became hypotensive with blood pressure in mid 70s. Esmolol drip was stopped patient was continued on amnio gtt. Decision was made to cardiovert the patient. Patient has been in atrial flutter with RVR greater than 48 hours so the risk of possible stroke was discussed with the patient. Other possible complications of bradycardia, need for possible intubation and PPM was discussed as well. -She received Lovenox -She was cardioverted rate with 150 Jx1 with yarsanism of normal sinus rhythm -Patient tolerated the procedure well. -continue amiodarone and anticoagulation over night Status: Acute (2) Pneumonia due to COVID-19 virus: Management as per primary Status: Acute (3) Morbid obesity with BMI of 40.0-44.9, adult: Status: Acute Additional A&P Information Hypotension Chronic active smoker COPD Anxiety/Depression GERD H/O Hypertension History of provoked DVT in 2014 Osteoarthritis Chronic back and sciatic pain on left side Fibromyalgia Thank you for allowing me to participate in patient's care. Please feel free to call with questions or concerns. Consult Attestations Time Spent in Patient Care: Greater than 35 minutes (>than 50% of time spent in counselling and/or direct pt care on unit) . Critical Care Time: The high probability of a clinically significant, sudden or life threatening deterioration of the patient's [cardiovascular] system(s) required my full and direct attention, intervention and personal management. The critical care time is as shown. This time is in addition to time spent performing any reported procedures but includes the following: [x] Data and vital sign review and interpretation [x] Patient assessment, examination and intervention [x] Documentation [x] Medication orders and management Critical Care Time (min): 45 Procedures Time out/Consent Time Out Performed: Yes Consent for Procedure: Consent obtained from patient, Risks & Benefits reviewed and Agrees to proceed with procedure Procedure Narrative Indication: symptomatic atrial flutter with RVR Sedation: Ketamine Anticoagulation: Lovenox Procedure: PADs were placed omero-posteriorly. After ensuring adequate sedation, single synchronized CV with 150 J was administered. Patient went back in sinus rhythm. No complications post procedure. Coding Level of Care Code Acute [employer] Liaison for [facility] Fwd Diagnoses Atrial flutter with rapid ventricular response I48.92 Pneumonia due to COVID-19 virus U07.1; J12.82 Morbid obesity with BMI of 40.0-44.9, adult E66.01; Z68.41
[2021-06-01] MEDS: dexamethasone 4 mg/mL INJ 6 MG IVP (20:25)
--- NOTE | 2021-06-01 20:41 | PC.NURSE ---
1957 - Timeout performed with Dr. Mercer , Dr. Pond, Myself, and respiratory at bedside. Vitals 98/69 Spo2 97 40% Hi-olivia 142 HR. 1956- Patient given 240 mg Ketamine IVP per Dr. Mercer 1958- Patient given 150J cardioversion 1999- Cardioversion complete NSR at 95 BPM 2000- 97 HR 116/75 bp 24 RR 97 Spo2 2004- 96 HR 131/81 100 Spo2 16 RR 40 liters hi-olivia 2009- 122/84 bp 98 HR, 24 RR, 100% on 2 liters NC 2014- 131/91 bp, 98 HR, 27 RR, 100% on 2 liters NC / patient becoming more alert GCS 13 2019-119/52 bp, 99 HR, 26 RR, 100 % 2 Liters NC. GCS 14 2021-Patient in no obvious distress. 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 Call light within reach.
[2021-06-01] MEDS: remdesivir 200 MG in sodium chloride 0.9% (100 ml) 100 ML 100 MG IV (20:50)
--- NOTE | 2021-06-01 21:15 | PC.NURSE ---
On Unit Patient received to ICU 3 via stretcher. Amio and remdesivir running per AUG. Patient transferred to bed with no complications. Patient in sinus rhythm with rate of 80-90s. All other vitals stable. Patient belongings at bedside.
[2021-06-01 22:54] LABS: Troponin 5 6HR 11.11 ng/L (0-10); Troponin 5 6HR Delta 1.11 ng/L (0-12)
[2021-06-02] VITALS (62 sets, daily range): BP systolic 89–132; BP diastolic 41–96; PULSE 60–88; RESP 14–29; TEMP 36.6–37.1; O2SAT 92–99; BMI 42.5
--- NOTE | 2021-06-02 02:30 | PC.NURSE ---
Void Patient stated need to go to the bathroom. Patient transferred to bedside commode and back to bed with 1 assist. Patient experienced urinary incontinence in brief prior to using bedside commode. Urine clear dark yellow with a foul smell. All vitals stable during activity.
[2021-06-02] MEDS: ipratropium-albuterol 3 mL Neb INHALATION ×4 (02:36→20:53)
[2021-06-02 04:04] LABS: Basophils % 0.3 %; Hematocrit 36.1 % (37.0-47.0); Hemoglobin 12.1 g/dL (11.5-15.3); Lymphocytes # 0.5 10^3/uL (0.8-4.8); Lymphocytes % 15.9 %; Mean Corpuscular HGB Conc 33.5 g/dL (30.0-36.0); Mean Corpuscular Hemoglobin 31.5 pg (28.0-34.0); Mean Platelet Volume 10.5 fL (7.4-10.4); Monocytes # 0.2 10^3/uL (0.2-0.9); Monocytes % 6.1 %; Neutrophils # 2.28 10^3/uL (1.8-7.7); Nucleated Red Blood Cells % 0 %; Platelet Count 241 10^3/cmm (130-400); Red Blood Count 3.84 10^6/uL (4.1-5.3); Red Cell Distribution Width 13.6 % (12.1-15.1)
[2021-06-02 04:06] LABS: INR 1.02 (0.8-1.2)
[2021-06-02 04:07] LABS: Partial Thromboplastin Time 34.8 SECONDS (23.9-36.7)
[2021-06-02 04:16] LABS: Alanine Aminotransferase 11 U/L (0-33); Albumin Level 3.3 g/dL (3.5-5.2); Alkaline Phosphatase 91 IU/L (35-105); Aspartate Amino Transferase 16 U/L (0-32); Blood Urea Nitrogen 10 mg/dL (8-23); Calcium 7.8 mg/dL (8.5-10.5); Carbon Dioxide 22 mmol/L (22-29); Chloride 101 mmol/L (98-107); Globulin 2.8 g/dL (1.3-4.6); Glomerular Filtration Rate 72.7 mL/min (90-130); Glucose 152 mg/dL (65-115); Osmolality Calculated 284 mOsm/kg (285-295); Sodium 136 mmol/L (136-145); Total Bilirubin 0.3 mg/dL (0.15-1.2); Total Protein 6.1 g/dL (6.6-8.7)
[2021-06-02 04:19] LABS: Magnesium 1.9 mg/dL (1.7-2.3); Thyroid Stimulating Hormone 0.32 uIU/mL (0.27-4.20)
[2021-06-02 04:23] LABS: Anion Gap 17.4 (5-19); Potassium 4.4 mmol/L (3.5-5.1)
[2021-06-02 04:27] LABS: NT Pro B Type Natriuretic Pept 313 pg/mL (0-125); Procalcitonin 0.07 ng/mL (0-0.5)
[2021-06-02] MEDS: enoxaparin 120 mg/0.8 mL Syringe 110 MG SUBCUT ×2 (06:22→18:43)
[2021-06-02] MEDS: remdesivir 100 MG in sodium chloride 0.9% (100 ml) 100 ML IV (06:23)
[2021-06-02] MEDS: pantoprazole DR 40 mg Tablet PO (06:23)
[2021-06-02] MEDS: cholecalciferol (vitamin D3) 1,000 unit Tablet 2000 UNIT PO (08:55)
[2021-06-02] MEDS: zinc gluconate 50 mg Tablet PO (08:55)
[2021-06-02] MEDS: aspirin 81 mg EC Tablet PO (08:55)
[2021-06-02] MEDS: ascorbic acid 500 mg Tablet 1000 MG PO ×2 (08:55→17:19)
[2021-06-02] MEDS: amiodarone 200 mg Tablet PO ×2 (08:55→17:19)
--- NOTE | 2021-06-02 09:31 | P.PN_ITS ---
Subjective Subjective: Interval history: Patient has remained in sinus rhythm. Medications: Reviewed: Yes Vitals/I&O/Wt Last Vital Signs Temp 98.2 F 06/02/21 04:00 Pulse 79 06/02/21 08:34 Resp 16 06/02/21 08:24 BP 128/65 06/02/21 06:30 Pulse Ox 96 06/02/21 08:24 06/01/21 06/02/21 06/02/21 22:59 06:59 14:59 Intake Total 1702.745 / 1702.745 351.71 / 2054.455 100 / 100 Output Total 765 / 765 Balance 1702.745 / 1702.745 -413.29 / 1289.455 100 / 100 Weight last 48 hrs Weight 247 lb 14.4 oz Physical Exam Narrative: EXAM NARRATIVE: Patient was not examined. Refer to note from Dr. Pond for details Data : 06/02/21 03:26 06/02/21 03:26 A&P Assessment and plan (1) Atrial flutter with rapid ventricular response: Patient became hypotensive with blood pressure in mid 70s. Esmolol drip was stopped patient was continued on amnio gtt. Decision was made to cardiovert the patient. Patient has been in atrial flutter with RVR greater than 48 hours so the risk of possible stroke was discussed with the patient. Other possible complications of bradycardia, need for possible intubation and PPM was discussed as well. -She received Lovenox -She was cardioverted rate with 150 Jx1 with presybeterian of normal sinus rhythm -Patient tolerated the procedure well. -Transition to amiodarone 200 mg twice a day x 2 weeks and then 200 mg daily and continue anticoagulation -Follow-up with me in 1 month in [facility] was stable to be discharged. I will sign off. Please call with any questions or concerns Status: Acute (2) Pneumonia due to COVID-19 virus: Management as per primary Status: Acute (3) Morbid obesity with BMI of 40.0-44.9, adult: Status: Acute Additional A&P Information Hypotension Chronic active smoker COPD Anxiety/Depression GERD H/O Hypertension History of provoked DVT in 2014 Osteoarthritis Chronic back and sciatic pain on left side Fibromyalgia Thank you for allowing me to participate in patient's care. Please feel free to call with questions or concerns. Attestations Medical Necessity Statement*: As per primary team Time Spent in Patient Care: 16 - 35 minutes Coding Level of Care Code Acute Mail Distribution Clerk for [facility] Fwd Diagnoses Atrial flutter with rapid ventricular response I48.92 Pneumonia due to COVID-19 virus U07.1; J12.82 Morbid obesity with BMI of 40.0-44.9, adult E66.01; Z68.41
--- NOTE | 2021-06-02 11:03 | PM.PN ---
Subjective Subjective: Interval history: Patient was seen and examined this morning, currently she is saturating well on 3 L oxygen, continues to be in normal sinus rhythm, shortness of breath has improved. Her other vitals and labs have been reviewed. Medications: Reviewed: Yes Vitals/I&O/Wt Last Vital Signs Temp 98 F 06/02/21 08:00 Pulse 79 06/02/21 10:30 Resp 17 06/02/21 09:30 BP 124/66 06/02/21 10:30 Pulse Ox 93 06/02/21 10:30 06/01/21 06/02/21 06/02/21 22:59 06:59 14:59 Intake Total 1702.745 / 1702.745 351.71 / 2054.455 720.492 / 720.492 Output Total 765 / 765 Balance 1702.745 / 1702.745 -413.29 / 1289.455 720.492 / 720.492 Weight last 48 hrs Weight 112.446 kg Physical Exam Const: COMMON NORMALS: patient oriented x3 HENMT: COMMON NORMALS: normocephalic and atraumatic HEAD & SCALP: normocephalic and atraumatic Resp: COMMON NORMALS: clear to auscultation bilaterally AUSCULTATION: clear to auscultation bilaterally Cardio: COMMON NORMALS: regular rate, regular rhythm, S1 normal heart sound present, S2 normal heart sound present, No gallops present (Cardio), No murmurs present (Cardio), No rub (Cardio) and Peripheral pulses 2+ throughout RATE: regular rate RHYTHM: regular rhythm HEART SOUNDS: S1 normal heart sound present and S2 normal heart sound present PERIPHERAL PULSES: Peripheral pulses 2+ throughout GI: COMMON NORMALS: Normal to inspection, nondistended, normoactive bowel sounds present, Soft to palpation, non-tender, No hepatosplenomegaly present and no masses AUSCULTATION: Yes normoactive bowel sounds PALPATION: Yes Soft to palpation and Yes No hepatosplenomegaly present RECTAL EXAM: deferred Extremity: COMMON NORMALS: no clubbing, cyanosis or edema and no pedal edema Neuro: COMMON NORMALS: patient oriented x3 Data : 06/02/21 03:26 06/02/21 03:26 A&P Assessment and plan (1) Atrial flutter with rapid ventricular response: Status: Acute (2) Pneumonia due to COVID-19 virus: Status: Acute (3) Anxiety and depression: Status: Acute (4) Chronic osteoarthritis: Status: Acute (5) Lumbar disc disease with radiculopathy: Status: Acute (6) Fibromyalgia: Status: Acute (7) Chronic GERD: Status: Acute (8) Morbid obesity with BMI of 40.0-44.9, adult: Status: Acute (9) COPD (chronic obstructive pulmonary disease): Status: Acute (10) Hypertension: Status: Acute (11) Hx of deep venous thrombosis: Status: Acute Additional A&P Information 60 year old female with past medical history of hypertension, fibromyalgia, osteoarthritis, chronic back pain, morbid obesity, was brought in with chief complaint of fever chills, nonproductive cough, dysnea, fatigue , loss of sense of smell and/or taste, nasal congestion, nausea and diarrhea going on for the last couple of days. #Symptomatic A.Flutter with RVR : S/P Sync Cardioversion : To NSR 2D ECHO : TSH:0.32 Was on Amiodarone Drip initially, has been switched to p.o. amiodarone 200 mg BID Lovenox 70 sc q 12 H daily Tele #COVID PNA : On COVID Protocol Continue to monitor inflammatory markers (ESR ,CRP , D-dimer , ferritin, LDH ) Procalcitonin:0.07 Continue remdesivir for 3-5 days Continue dexamethasone 6 mg IV daily Continue duo nebs Continue Advair inhaler Continue zinc ascorbate acid. Vitamin D Supplemental oxygen as needed On therapeutic anticoagulation # HTN: Blood pressure is fairly well controlled. # OA #Fibromyalgia #Code Status :Full Code #DVT PPX :On lovenox Attestations Medical Necessity Statement*: In hospital for management of Covid pneumonia, atrial flutter. Coding Level of Care Code Acute Artificial Leather Calender Operator for [facility] Fwd Exam Detailed Diagnoses Atrial flutter with rapid ventricular response I48.92 Pneumonia due to COVID-19 virus U07.1; J12.82 Anxiety and depression F41.9; F32.9 Chronic osteoarthritis M19.90 Lumbar disc disease with radiculopathy M51.16 Fibromyalgia M79.7 Chronic GERD K21.9 Morbid obesity with BMI of 40.0-44.9, adult E66.01; Z68.41 COPD (chronic obstructive pulmonary disease) J44.9 Hypertension I10 Hx of deep venous thrombosis Z86.718
--- NOTE | 2021-06-02 18:35 | PC.NURSE ---
Shift Note Frequent safety and comfort rounds continue. Orders and/or nursing care completed as indicated. Patient monitored for response to intervention and treatment(s). Education provided includes medications, care plan, and new orders. Patient verbalized understanding. Patient does SI and flutter valve independently without prompting. Patient up to chair today. Patient off IV Amio, see AUG.
[2021-06-02] MEDS: dexamethasone 4 mg/mL INJ 6 MG IVP (18:44)
[2021-06-02] MEDS: acetaminophen 325 mg Tablet 650 MG PO (20:59)
[2021-06-03] VITALS (31 sets, daily range): BP systolic 96–130; BP diastolic 60–91; PULSE 58–82; RESP 16–23; TEMP 36.4–36.7; O2SAT 85–100
[2021-06-03] MEDS: ipratropium-albuterol 3 mL Neb INHALATION ×4 (02:43→20:50)
[2021-06-03 04:11] LABS: Basophils % 0.2 %; Hematocrit 36.8 % (37.0-47.0); Lymphocytes # 0.6 10^3/uL (0.8-4.8); Mean Corpuscular HGB Conc 32.6 g/dL (30.0-36.0); Mean Corpuscular Hemoglobin 30.6 pg (28.0-34.0); Mean Corpuscular Volume 93.9 fl (81-99); Mean Platelet Volume 10.5 fL (7.4-10.4); Monocytes # 0.4 10^3/uL (0.2-0.9); Monocytes % 6.8 %; Neutrophils # 5.23 10^3/uL (1.8-7.7); Neutrophils % 82.8 %; Nucleated Red Blood Cells % 0 %; Platelet Count 278 10^3/cmm (130-400); Red Blood Count 3.92 10^6/uL (4.1-5.3); Red Cell Distribution Width 13.7 % (12.1-15.1); White Blood Count 6.3 10^3/uL (4.0-10.0)
[2021-06-03 04:19] LABS: Erythrocyte Sedimentation Rate 25 mm/hr (0-15)
[2021-06-03 04:31] LABS: Fibrinogen 484 mg/dL (174-498)
[2021-06-03 04:34] LABS: D Dimer 0.84 ug/mIFEU (0-0.59)
[2021-06-03 04:36] LABS: Alanine Aminotransferase 13 U/L (0-33); Albumin Level 3.6 g/dL (3.5-5.2); Alkaline Phosphatase 87 IU/L (35-105); Anion Gap 18.4 (5-19); Aspartate Amino Transferase 17 U/L (0-32); Blood Urea Nitrogen 14 mg/dL (8-23); C Reactive Protein 50.6 mg/L (0.0-4.9); Calcium 8.1 mg/dL (8.5-10.5); Carbon Dioxide 20 mmol/L (22-29); Chloride 99 mmol/L (98-107); Ferritin 966 ng/mL (15-150); Globulin 2.8 g/dL (1.3-4.6); Glomerular Filtration Rate 101.3 mL/min (90-130); Glucose 159 mg/dL (65-115); Osmolality Calculated 280 mOsm/kg (285-295); Potassium 4.4 mmol/L (3.5-5.1); Sodium 133 mmol/L (136-145); Total Bilirubin 0.2 mg/dL (0.15-1.2); Total Protein 6.4 g/dL (6.6-8.7)
[2021-06-03] MEDS: remdesivir 100 MG in sodium chloride 0.9% (100 ml) 100 ML IV (06:02)
[2021-06-03] MEDS: enoxaparin 120 mg/0.8 mL Syringe 110 MG SUBCUT ×2 (06:02→18:25)
[2021-06-03] MEDS: pantoprazole DR 40 mg Tablet PO (06:03)
--- NOTE | 2021-06-03 06:07 | PC.NURSE ---
No acute changes over night. V/S wnl.
[2021-06-03] MEDS: ascorbic acid 500 mg Tablet 1000 MG PO ×2 (08:02→18:25)
[2021-06-03] MEDS: amiodarone 200 mg Tablet PO ×2 (08:02→18:25)
[2021-06-03] MEDS: aspirin 81 mg EC Tablet PO (08:02)
[2021-06-03] MEDS: zinc gluconate 50 mg Tablet PO (08:03)
[2021-06-03] MEDS: cholecalciferol (vitamin D3) 1,000 unit Tablet 2000 UNIT PO (08:03)
[2021-06-03] MEDS: benzonatate 100 mg Capsule 200 MG PO ×2 (08:32→18:36)
[2021-06-03] MEDS: FUROsemide 40 mg Tablet PO (08:32)
--- NOTE | 2021-06-03 11:06 | PC.NURSE ---
Transfer Note Patient transferred to [facility] from ICU 3 via wheelchair. Handoff given to nurse Restrepo. Patient oriented to environment and equipment. Covering service notified. Orders reviewed and will continue to monitor. Family and/or utility sales representative notified.
--- NOTE | 2021-06-03 17:47 | USCV_ITS ---
Camille Warren Age: 60 Gender: F : 1960 Exam Date: 06/03/2021 06:25 Ordering Phys: Jen Esparza MD ([email or web address]) Technologist: Lilian Goncalves Exam Location: [facility] [place] Indication: COVID, A FLUTTER BP: 120 / 93 HR: 63 Rhythm: Other Technical Quality: Adequate MEASUREMENTS (Male / Female) Normal Values 2D ECHO LV Diastolic Diameter PLAX 4.4 cm 4.2 - 5.9 / 3.9 - 5.3 cm LV Systolic Diameter PLAX 3.8 cm LV Chamber Size 3.5 cm IVS Diastolic Thickness 1.3 cm 0.6 - 1.0 / 0.6 - 0.9 cm IVS Systolic Thickness 1.5 cm LVPW Diastolic Thickness 1.6 cm 0.6 - 1.0 / 0.6 - 0.9 cm LVPW Systolic Thickness 1.8 cm RV Chamber Size 3.2 cm LVOT Diameter 2.0 cm LV Ejection Fraction 2D Teich 31.6 % LV Ejection Fraction MOD 2C 36.2 % LV Ejection Fraction 2C AL 40.0 % LA Diameter 4.4 cm LA Width 4.0 cm LA Height 4.8 cm RA Width 3.7 cm RA Height 3.4 cm Aorta at Sinotubular Diameter 2.8 cm M-MODE Aortic Annulus Diameter 2.8 cm LA Ao Ratio MM 1.7 MV E Point Septal Separation 1.1 cm DOPPLER AV Peak Velocity 128.3 cm/s LVOT Peak Velocity 65.3 cm/s AV Area Cont Eq vti 2.0 cm squared AV Area Cont Eq pk 1.7 cm squared MV Area PHT 3.1 cm squared Mitral E to A Ratio 2.5 MV E' Velocity 55.5 cm/s Mitral E to MV E' Ratio 10.4 Mitral E to LV E' Lateral Ratio 10.5 Mitral E to LV E' Septal Ratio 10.4 TR Peak Velocity 209.8 cm/s TR Peak Gradient 17.6 mmHg TR Mean Velocity 159.2 cm/s TR Mean Gradient 12.6 mmHg TR Velocity Time Integral 76.1 cm TV Peak E Velocity 56.0 cm/s Right Atrial Pressure 3.0 mmHg Pulmonary Artery Systolic Pressu 20.6 mmHg PV Peak Velocity 64.0 cm/s RV Acceleration Time 0.1 s RV Ejection Time 0.4 s RV AcT/ET 0.3 FINDINGS Left Ventricle Normal left ventricular size, systolic function and upper normal wall thickness, with no regional wall motion abnormalities. Left ventricular ejection fraction is estimated at 60 %. Grade II diastolic dysfunction, moderately elevated filling pressures. Right Ventricle Normal right ventricular size and systolic function. Right ventricular systolic pressure 29 mmHg. Right Atrium Normal right atrial size. Left Atrium Mildly increased left atrial size. Mitral Valve Mildly thickened mitral valve. No mitral valve stenosis. Trace mitral valve regurgitation. Aortic Valve Structurally normal trileaflet aortic valve. No aortic valve stenosis. No aortic valve regurgitation. Tricuspid Valve Structurally normal tricuspid valve. Trace tricuspid valve regurgitation. Pulmonic Valve Pulmonic valve not well visualized. No pulmonary valve stenosis. Trace pulmonary valve regurgitation. Pericardium No pericardial effusion. Aorta Normal sized aortic root. CONCLUSIONS 1. Normal left ventricular size, systolic function and upper normal wall thickness, with no regional wall motion abnormalities. Left ventricular ejection fraction is estimated at 60 %. Grade II diastolic dysfunction, moderately elevated filling pressures. 2. Pulmonary artery pressure estimated at 29 mm Hg. 3. No significant valvular abnormality. 4. No prior similar studies to compare. Jen Esparza MD (Electronically Signed) Final Date: 03 June 2021 07:50 S
--- NOTE | 2021-06-03 18:05 | PM.PN ---
Subjective Subjective: Interval history: Patient was seen and examined this morning, currently she is saturating well on 3 L oxygen, continues to be in normal sinus rhythm, she was complaining of Mild nonproductive cough. Continue to be remained afebrile. Medications: Reviewed: Yes Vitals/I&O/Wt Last Vital Signs Temp 97.8 F 06/03/21 15:33 Pulse 76 06/03/21 15:33 Resp 16 06/03/21 15:33 BP 115/79 06/03/21 15:33 Pulse Ox 95 06/03/21 15:33 06/03/21 06/03/21 06/03/21 06:59 14:59 22:59 Intake Total 120 / 1460.492 698 / 698 Output Total 400 / 650 550 / 550 Balance -280 / 810.492 148 / 148 Weight last 48 hrs Weight 112.446 kg Physical Exam Const: COMMON NORMALS: patient oriented x3 HENMT: COMMON NORMALS: normocephalic and atraumatic HEAD & SCALP: normocephalic and atraumatic Resp: COMMON NORMALS: clear to auscultation bilaterally AUSCULTATION: clear to auscultation bilaterally Cardio: COMMON NORMALS: regular rate, regular rhythm, S1 normal heart sound present, S2 normal heart sound present, No gallops present (Cardio), No murmurs present (Cardio), No rub (Cardio) and Peripheral pulses 2+ throughout RATE: regular rate RHYTHM: regular rhythm HEART SOUNDS: S1 normal heart sound present and S2 normal heart sound present PERIPHERAL PULSES: Peripheral pulses 2+ throughout GI: COMMON NORMALS: Normal to inspection, nondistended, normoactive bowel sounds present, Soft to palpation, non-tender, No hepatosplenomegaly present and no masses AUSCULTATION: Yes normoactive bowel sounds PALPATION: Yes Soft to palpation and Yes No hepatosplenomegaly present RECTAL EXAM: deferred Extremity: COMMON NORMALS: no clubbing, cyanosis or edema and no pedal edema Neuro: COMMON NORMALS: patient oriented x3 Data : 06/03/21 03:50 06/03/21 03:50 A&P Assessment and plan (1) Atrial flutter with rapid ventricular response: Status: Acute (2) Pneumonia due to COVID-19 virus: Status: Acute (3) Anxiety and depression: Status: Acute (4) Chronic osteoarthritis: Status: Acute (5) Lumbar disc disease with radiculopathy: Status: Acute (6) Fibromyalgia: Status: Acute (7) Chronic GERD: Status: Acute (8) Morbid obesity with BMI of 40.0-44.9, adult: Status: Acute (9) COPD (chronic obstructive pulmonary disease): Status: Acute (10) Hypertension: Status: Acute (11) Hx of deep venous thrombosis: Status: Acute Additional A&P Information 60 year old female with past medical history of hypertension, fibromyalgia, osteoarthritis, chronic back pain, morbid obesity, was brought in with chief complaint of fever chills, nonproductive cough, dysnea, fatigue , loss of sense of smell and/or taste, nasal congestion, nausea and diarrhea going on for the last couple of days. #Symptomatic A.Flutter with RVR : S/P Sync Cardioversion : To NSR 2D ECHO : Normal LV size and systolic function, no RWMA , LVEF 60%, grade 2 diastolic dysfunction. Pulmonary artery systolic pressures 29mm hg, no significant valvular involvement. TSH:0.32 Was on Amiodarone Drip initially, has been switched to p.o. amiodarone 200 mg BID Lovenox 70 sc q 12 H daily Tele #COVID PNA : On COVID Protocol Continue to monitor inflammatory markers (ESR ,CRP , D-dimer , ferritin, LDH ) Procalcitonin:0.07 Continue remdesivir for 3-5 days Continue dexamethasone 6 mg IV daily Continue duo nebs Continue Advair inhaler Continue zinc ascorbate acid. Vitamin D Supplemental oxygen as needed On therapeutic anticoagulation # HTN: Blood pressure is fairly well controlled. # OA #Fibromyalgia #Code Status :Full Code #DVT PPX :On lovenox Attestations Medical Necessity Statement*: Patient is still in hospital for management of Covid pneumonia. 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
[2021-06-03] MEDS: dexamethasone 4 mg/mL INJ 6 MG IVP (18:25)
[2021-06-04] VITALS (7 sets, daily range): BP systolic 96–142; BP diastolic 58–70; PULSE 66–82; RESP 16–21; TEMP 36.5–37.1; O2SAT 90–95
[2021-06-04] MEDS: ipratropium-albuterol 3 mL Neb INHALATION ×2 (03:11→08:26)
[2021-06-04] MEDS: pantoprazole DR 40 mg Tablet PO (06:19)
[2021-06-04] MEDS: remdesivir 100 MG in sodium chloride 0.9% (100 ml) 100 ML IV (06:20)
[2021-06-04] MEDS: enoxaparin 120 mg/0.8 mL Syringe 110 MG SUBCUT (06:20)
[2021-06-04 06:53] LABS: Basophils % 0.1 %; Hematocrit 35.5 % (37.0-47.0); Hemoglobin 11.8 g/dL (11.5-15.3); Lymphocytes # 0.6 10^3/uL (0.8-4.8); Lymphocytes % 8.1 %; Mean Corpuscular HGB Conc 33.2 g/dL (30.0-36.0); Mean Corpuscular Hemoglobin 31.3 pg (28.0-34.0); Mean Corpuscular Volume 94.2 fl (81-99); Mean Platelet Volume 10.9 fL (7.4-10.4); Monocytes # 0.5 10^3/uL (0.2-0.9); Monocytes % 6.9 %; Neutrophils # 6.32 10^3/uL (1.8-7.7); Neutrophils % 84.4 %; Nucleated Red Blood Cells % 0 %; Platelet Count 343 10^3/cmm (130-400); Red Blood Count 3.77 10^6/uL (4.1-5.3); Red Cell Distribution Width 13.7 % (12.1-15.1); White Blood Count 7.5 10^3/uL (4.0-10.0)
[2021-06-04 07:14] LABS: Alanine Aminotransferase 30 U/L (0-33); Albumin Level 3.3 g/dL (3.5-5.2); Alkaline Phosphatase 98 IU/L (35-105); Anion Gap 15.4 (5-19); Aspartate Amino Transferase 34 U/L (0-32); Blood Urea Nitrogen 11 mg/dL (8-23); C Reactive Protein 28.8 mg/L (0.0-4.9); Calcium 7.8 mg/dL (8.5-10.5); Carbon Dioxide 27 mmol/L (22-29); Chloride 102 mmol/L (98-107); Globulin 2.6 g/dL (1.3-4.6); Glucose 138 mg/dL (65-115); Osmolality Calculated 292 mOsm/kg (285-295); Potassium 4.4 mmol/L (3.5-5.1); Sodium 140 mmol/L (136-145); Total Bilirubin 0.2 mg/dL (0.15-1.2); Total Protein 5.9 g/dL (6.6-8.7)
[2021-06-04 07:26] LABS: Ferritin 1228 ng/mL (15-150)
[2021-06-04 07:29] LABS: Fibrinogen 462 mg/dL (174-498)
[2021-06-04 07:32] LABS: D Dimer 0.55 ug/mIFEU (0-0.59)
[2021-06-04 08:06] LABS: Erythrocyte Sedimentation Rate 18 mm/hr (0-15)
[2021-06-04] MEDS: aspirin 81 mg EC Tablet PO (08:29)
[2021-06-04] MEDS: cholecalciferol (vitamin D3) 1,000 unit Tablet 2000 UNIT PO (08:29)
[2021-06-04] MEDS: amiodarone 200 mg Tablet PO (08:30)
[2021-06-04] MEDS: zinc gluconate 50 mg Tablet PO (08:30)
[2021-06-04] MEDS: ascorbic acid 500 mg Tablet 1000 MG PO (08:30)
[2021-06-04] MEDS: benzonatate 100 mg Capsule 200 MG PO (08:33)
--- NOTE | 2021-06-04 11:49 | PM.DCS ---
Discharge Providers Date of Admission: 06/01/21 18:28 Date of Discharge: June 04, 2021 Attending Provider at Admission: Cesar Pond MD Attending Provider at Discharge: Cesar Pond MD Primary Care Provider: Yassine Erazo MD Diagnoses at Discharge Discharge Diagnosis (1) Atrial flutter with rapid ventricular response: (2) Pneumonia due to COVID-19 virus: (3) Anxiety and depression: (4) Chronic osteoarthritis: (5) Lumbar disc disease with radiculopathy: (6) Fibromyalgia: (7) Chronic GERD: (8) Morbid obesity with BMI of 40.0-44.9, adult: (9) COPD (chronic obstructive pulmonary disease): (10) Hypertension: (11) Hx of deep venous thrombosis: Reason for Visit Reason for Visit: Covid symptoms Hospital Course Hospital Course Camille Warren is a 60 year old female with past medical history of hypertension, fibromyalgia, osteoarthritis, chronic back pain, morbid obesity, was brought in with chief complaint of fever chills, nonproductive cough, dysnea, fatigue , loss of sense of smell and/or taste, nasal congestion, nausea and diarrhea going on for the last couple of days. Upon arrival in the ER she was worked up for for above-mentioned complaint. Pertinent imaging studies: CTA chest: No P/E , Multilobar ground-glass opacities EKG: A flutter with RVR with heart rate in 140s to 150s Pertinent labs: WBC 4.7, H&H:14.4/41,PLT : 256 , serum sodium 131, Serum k: 4.2, BUN / serum creatinine: 9/0.7 , CRP:105, D-dimer:1.38 Rapid Covid pcr positive. Troponin trend without significant delta ABG: pH 7.48, PCO2 31, po2:267, FiO2: 100% Patient was severely symptomatic with respect to her atrial flutter with RVR, she did not responded to Cardizem, esmolol drip was started, amiodarone bolus was given , Amio drip was hanged, IV fluid was given , she was severely symptomatic as well as hypotensive. Plan was developed to cardioverted her, and if needed intubate her in case of respiratory compromise. Patient was successfully cardioverted to normal sinus rhythm (ketamine was used, she was sync and shocked with 150 j ) She was saturating 100% on heated high flow oxygen through nasal cannula ( 40ls/min and 55% FiO2 ). During the hospital stay she was managed for COVID PNA as well as a.flutter with rvr,s/p cardioverion to NSR. She was kept on covid protocol and responded well and was discharged on 2ls home oxygen.She continued to remain in NSR and was discharged on po amidarone 200 mg BID for 2 weeks and 20O MG po daily till she cardiology in 2 weeks, she has been discharged on eliquis for Ac.She responded well to above medical management and is being discharged in stable condition to home she will continue to follow cardiology as well as her pcp as outpatient. Physical Exam Const: COMMON NORMALS: patient oriented x3 HENMT: COMMON NORMALS: normocephalic and atraumatic HEAD & SCALP: normocephalic and atraumatic Resp: COMMON NORMALS: clear to auscultation bilaterally AUSCULTATION: clear to auscultation bilaterally Cardio: COMMON NORMALS: regular rate, regular rhythm, S1 normal heart sound present, S2 normal heart sound present, No gallops present (Cardio), No murmurs present (Cardio), No rub (Cardio) and Peripheral pulses 2+ throughout RATE: regular rate RHYTHM: regular rhythm HEART SOUNDS: S1 normal heart sound present and S2 normal heart sound present PERIPHERAL PULSES: Peripheral pulses 2+ throughout GI: COMMON NORMALS: Normal to inspection, nondistended, normoactive bowel sounds present, Soft to palpation, non-tender, No hepatosplenomegaly present and no masses AUSCULTATION: Yes normoactive bowel sounds PALPATION: Yes Soft to palpation and Yes No hepatosplenomegaly present RECTAL EXAM: deferred Extremity: COMMON NORMALS: no clubbing, cyanosis or edema and no pedal edema Neuro: COMMON NORMALS: patient oriented x3 Discharge Data Data Completed and Pending: Completed Studies During Hospitalization Category Date Time Status CT angio chest PE protcl [id number] Stat Cat Scan 06/01/21 16:43 Completed XR chest 1V luis ble [id number] Stat Exams 06/01/21 15:50 Completed CV. echo complete * [id number] Routine Ultrasound 06/03/21 17:47 Completed Pending at discharge Category Date Time Status C Reactive Protei n AM LABS Lab 06/05/21 04:00 Ordered D Dimer AM LABS Lab 06/05/21 04:00 Ordered Erythrocyte Sedim entation Rate AM L ABS Lab 06/05/21 04:00 Ordered Ferritin AM LABS Lab 06/05/21 04:00 Ordered Fibrinogen AM LAB S Lab 06/05/21 04:00 Ordered Labs from last 24 hours 06/04/21 06/04/21 06/04/21 06:05 06:05 06:05 WBC RBC Hgb Hct MCV MCH MCHC RDW Plt Count MPV Neut % (Auto) Lymph % (Auto) Chambers % (Auto) Eos % (Auto) Baso % (Auto) Neut # (Auto) Lymph # (Auto) Chambers # (Auto) Eos # (Auto) Baso # (Auto) Nucleated RBC % (a uto) Nucleated RBCs # ESR 18 H Fibrinogen 462 D-Dimer 0.55 Sodium 140 Potassium 4.4 Chloride 102 Carbon Dioxide 27 Anion Gap 15.4 BUN 11 Creatinine 0.5 GFR Calculation 125.0 Glucose 138 H Calculated Osmolal ity 292 Calcium 7.8 L Ferritin 1228 H Total Bilirubin 0.2 AST 34 H ALT 30 Alkaline Phosphata se 98 C-Reactive Protein 28.8 H Total Protein 5.9 L Albumin 3.3 L Globulin 2.6 06/04/21 06:05 WBC 7.5 RBC 3.77 L Hgb 11.8 Hct 35.5 L MCV 94.2 MCH 31.3 MCHC 33.2 RDW 13.7 Plt Count 343 MPV 10.9 H Neut % (Auto) 84.4 Lymph % (Auto) 8.1 Chambers % (Auto) 6.9 Eos % (Auto) 0.0 Baso % (Auto) 0.1 Neut # (Auto) 6.32 Lymph # (Auto) 0.6 L Chambers # (Auto) 0.5 Eos # (Auto) 0.0 Baso # (Auto) 0.0 Nucleated RBC % (a uto) 0 Nucleated RBCs # 0.0 ESR Fibrinogen D-Dimer Sodium Potassium Chloride Carbon Dioxide Anion Gap BUN Creatinine GFR Calculation Glucose Calculated Osmolal ity Calcium Ferritin Total Bilirubin AST ALT Alkaline Phosphata se C-Reactive Protein Total Protein Albumin Globulin Vitals: Last Vital Signs Temp 98.7 F 06/04/21 08:00 Pulse 66 06/04/21 08:27 Resp 20 H 06/04/21 08:27 BP 105/69 06/04/21 08:00 Pulse Ox 95 06/04/21 08:27 Discharge Plan Discharge Patient Disposition: Home Condition: Stable Prescriptions: New Vitamin C 500 mg Tablet 1,000 mg PO BID 7 Days Qty: 28 RF: 0 benzonatate 100 mg Capsule 200 mg PO TID PRN (Reason: Cough) 7 Days Qty: 21 RF: 0 zinc gluconate 50 mg Tablet 50 mg PO DAILY 7 Days Qty: 7 RF: 0 Advair Diskus 250-50 mcg/dose blister with device 1 inh inhalation BID 30 Days Qty: 60 RF: 1 dexamethasone 4 mg tablet 4 mg PO DAILY Qty: 7 RF: 0 amiodarone 200 mg tablet 200 mg PO BID Qty: 60 RF: 3 Eliquis 5 mg tablet 5 mg PO BID Qty: 60 RF: 3 Lasix 20 mg tablet 20 mg PO DAILY Qty: 30 RF: 3 Continued omeprazole 40 mg capsule,delayed release(DR/EC) 40 mg PO QAM Qty: 30 RF: 5 potassium chloride 20 mEq tablet extended release 20 meq PO QAM Qty: 30 RF: 5 aspirin 81 mg tablet,delayed release (DR/EC) 81 mg PO DAILY Qty: 90 RF: 3 meloxicam 7.5 mg tablet 7.5 mg PO BIDWMEAL Qty: 60 RF: 5 bupropion HCl 150 mg tablet sustained-release 12 hr 300 mg PO QAM 30 Days Qty: 60 RF: 3 amitriptyline 25 mg tablet 12.5 mg PO DAILY Qty: 30 RF: 5 albuterol sulfate 90 mcg/actuation HFA aerosol inhaler 2 puff inhalation Q6H PRN (Reason: shortness of breath or wheezing) 30 Days Qty: 8.5 RF: 5 acetaminophen [Tylenol Extra Strength] 500 mg Tablet 1,000 mg PO PRN RF: 0 Held isosorbide mononitrate 30 mg tablet extended release 24 hr 30 mg PO DAILY Qty: 30 RF: 5 Hold Instructions: Resume on 06/11/21. Discontinued furosemide [Lasix] 40 mg tablet 40 mg PO DAILY RF: 0 Discharge Orders: Discharge Order (Routine); Ordered 06/04/21 Ordered By: Cesar Pond Other Ambulatory Orders: DME: Oxygen (Order) Location: None Selected Ordered By: Cesar Pond Referrals: Yassine Erazo MD [Primary Care Provider] - 2 weeks Jen Esparza MD [Physician] - 2 weeks Discharge Diet: Regular Discharge Activity: Increase activity as tolerated Patient Instructions: Benzonatate (By mouth), Amiodarone (By mouth), Ascorbic Acid (By mouth), Dexamethasone (By mouth), Fluticasone/Salmeterol (By breathing) (Advair Diskus 100/50, Advair..., Zinc Supplement (By mouth), Apixaban (By mouth) (Eliquis), COVID-19 (Coronavirus Disease 2019) (DC), Opioid Safety Discharge Attestations Time Spent in Discharge Care*: less than 30 min Specific Discharge Activities: educating patient, educating and/or supporting family/caregiver, discussing with pcp/other providers, discussing with pillowcase sewer/social workers/dc planners, documenting/other paperwork and evaluating patient/reviewing data Status at Discharge: Cognitive status at discharge: cognitively intact, Behavioral status at discharge: cooperative, Overall status at discharge: patient is back to baseline Quality Metrics Clinical Quality Measures During this hospital stay, did patient experience: None Coding Level of Care Code Acute Chg FW DC note Diagnoses Atrial flutter with rapid ventricular response I48.92 Pneumonia due to COVID-19 virus U07.1; J12.82 Anxiety and depression F41.9; F32.9 Chronic osteoarthritis M19.90 Lumbar disc disease with radiculopathy M51.16 Fibromyalgia M79.7 Chronic GERD K21.9 Morbid obesity with BMI of 40.0-44.9, adult E66.01; Z68.41 COPD (chronic obstructive pulmonary disease) J44.9 Hypertension I10 Hx of deep venous thrombosis Z86.718
== END 2021-06-04 14:13 | disposition home or self-care (01) | DRG 177 ==
LOC: ER 18:54 → ICU 19:41 → MEDSURG 06-03 11:04
PROVIDERS: Admitting Provider Internal Medicine; Emergency Provider Family Medicine; PCP Family Medicine Adult Medicine; Visit Provider Internal Medicine
DX: U07.1 COVID-19 (principal); J12.82 Pneumonia due to coronavirus disease 2019; Z68.41 Body mass index [BMI] 40.0-44.9, adult; I48.92 Unspecified atrial flutter; F41.8 Other specified anxiety disorders; K21.9 Gastro-esophageal reflux disease without esophagitis; J44.9 Chronic obstructive pulmonary disease, unspecified; Z86.718 Personal history of other venous thrombosis and embolism; I10 Essential (primary) hypertension; E66.01 Morbid (severe) obesity due to excess calories; M17.12 Unilateral primary osteoarthritis, left knee; M54.32 Sciatica, left side; M79.7 Fibromyalgia; G89.29 Other chronic pain; I95.9 Hypotension, unspecified; M54.16 Radiculopathy, lumbar region; Z79.82 Long term (current) use of aspirin; Z79.51 Long term (current) use of inhaled steroids
CPT/HCPCS: 36415; 36600; 71045; 71275; 80051; 80053; 82330; 82728; 82805; 83735; 83880; 84145; 84443; 84484; 85025; 85378; 85384; 85610; 85651; 85730; 86140; 87635; 93005; 93306; 94640; 96365; 96366; 96367; 96372; 96375; 99291; 99292; J0282; J1100; J1650; J3490; J7040; J7060; Q9967

== ENCOUNTER → 2021-10-03 11:34 | Outpatient (BNVA) | payer MEDICAID, SELFPAY | PROVIDERS: PCP Family Medicine Adult Medicine; Visit Provider Internal Medicine Cardiovascular Disease | DX: I48.92 Unspecified atrial flutter (principal); I11.0 Hypertensive heart disease with heart failure; I50.30 Unspecified diastolic (congestive) heart failure; K21.9 Gastro-esophageal reflux disease without esophagitis; F41.9 Anxiety disorder, unspecified; F32.9 Major depressive disorder, single episode, unspecified; G47.30 Sleep apnea, unspecified; Z79.82 Long term (current) use of aspirin; F17.210 Nicotine dependence, cigarettes, uncomplicated | CPT/HCPCS: 99214 ==